=== PATIENT | male | born 1955 | race Caucasian/White ===

== ENCOUNTER 2016-05-08 13:58 | Emergency (ER) | payer OTHER ==
[~2016-05-08] VITALS: Ht 177.8 cm; Wt 72.0 kg
[~2016-05-08 13:58] MED LIST: ALPR-385 PO; CHOL2000 PO; CLON0.2T PO; CYAN10005 PO; DOCU-94 PO; MIRT15TA3 PO; NORT10CA PO; NRN/300 PO; ONDA8TAB12 PO
[2016-05-08 14:06] VITALS: TEMP 36.5; Ht 177.8 cm; Wt 72.0 kg
[2016-05-08] MEDS ORDERED: CLCS60 TOP (15:41)
[2016-05-08] MEDS ORDERED: PRT/40 PO (15:41)
[2016-05-08] MEDS ORDERED: TRIA0.022 TOP (15:41)
[2016-05-08] MEDS ORDERED: PROM25TA16 PO (15:41)
[2016-05-08] MEDS ORDERED: ZLF/50 PO (15:41)
[2016-05-08] MEDS ORDERED: TRIA1SPR4 NAE (15:42)
[2016-05-08] MEDS ORDERED: PROMETHAZINE HCL INJ 25 MG/ML 1 ML VIAL IV STA (15:49)
[2016-05-08] MEDS ORDERED: SODIUM CHLORIDE 0.9% 1000ML 1,000 ML IV STA (15:49)
[2016-05-08 16:00] LABS: BASO % 0.6 %; BASO ABS # 0.03 K/uL (0-0.2); COMPLETE YES; EOS % 2.3 %; HEMATOCRIT 45.9 % (42-52); IG% 0.2 %; LYMPH % 37.2 %; LYMPH ABS # 1.96 K/uL (1.2-3.4); MEAN CELL VOLUME 86.8 fL (80-100); MEAN CORPUSCULAR HEMOGLOBIN 30.8 pg (25-34); MEAN CORPUSCULAR HGB CONC 35.5 g/dl (32-36); MEAN PLATELET VOLUME 10.6 fL (7.4-10.4); MONO % 4.7 %; PLATELET COUNT 183 K/uL (130-400); RED BLOOD COUNT 5.29 M/uL (4.7-6.1); WHITE BLOOD COUNT 5.27 K/uL (4.8-10.8)
[2016-05-08 16:10] LABS: BLOOD UREA NITROGEN 9 mg/dl (7-18); BUN/CREATININE RATIO 8.5 (10-20); C-REACTIVE PROTEIN < 0.29 mg/dl (0-0.29); CALCIUM 8.7 mg/dl (8.5-10.1); CARBON DIOXIDE 26 mmol/L (21-32); CHLORIDE 108 mmol/L (98-107); GLUCOSE 106 mg/dl (70-99); POTASSIUM 3.5 mmol/L (3.5-5.1); SODIUM 141 mmol/L (136-145)
[2016-05-08] MEDS ORDERED: PROMETHAZINE HCL INJ 25 MG in SODIUM CHLORIDE 0.9% 50ML 50 ML IV SCH (16:15)
[2016-05-08 16:16] LABS: ALKALINE PHOSPHATASE 80 U/L (45-117); ALT/SGPT 24 U/L (12-78); AST/SGOT 16 U/L (15-37)
[2016-05-08 16:20] LABS: URINE APPEARANCE CLEAR (CLEAR); URINE BILIRUBIN NEG (NEG); URINE COLOR YELLOW; URINE NITRITE NEG (NEG); URINE PH 6.5 (4.5-7.5); URINE SPECIFIC GRAVITY 1.011 (1.000-1.030); UROBILINOGEN NEG (NEG)
[2016-05-08 16:28] LABS: MANUAL MICROSCOPIC REQUIRED? NO; REVIEW REQ? NO
[2016-05-08] MEDS ORDERED: OPTIRAY 320 IV PRN (17:30)
--- NOTE | 2016-05-08 18:58 | DIAGNOSTIC IMAGING REPORT ---
ABDOMEN AND PELVIS CT WITH IV AND ORAL CONTRAST CT DOSE: 298.85 mGy.cm HISTORY: Generalized abdominal pain. TECHNIQUE: Multiaxial CT images of the abdomen and pelvis were performed following the use of intravenous and oral contrast. COMPARISON STUDY: Abdomen and pelvis CT 06/01/2015. FINDINGS: Emphysema with mild bibasilar subsegmental atelectasis. Stable subcentimeter hypodense lesion within the liver and right kidney. The largest in the right kidney measures 9 mm. These are technically too small to characterize but likely represent cysts. The gallbladder, pancreas, spleen, adrenal glands, and left kidney are unremarkable. Normal bladder. Colonic diverticulosis. No bowel wall thickening or obstruction. Normal appendix. Moderate calcified plaque within the normal caliber abdominal aorta. No retroperitoneal lymphadenopathy. IMPRESSION: No significant change compared to the prior study. No bowel wall thickening or obstruction. Normal appendix. Colonic diverticulosis. Emphysema. Electronically signed by: Gurinder Lewis M.D. 05/08/2016 6:56 PM Dictated Date/Time: 05/08/2016 6:50 PM
--- NOTE | 2016-05-08 20:10 | DIAGNOSTIC IMAGING REPORT ---
ABDOMINAL ULTRASOUND, RIGHT UPPER QUADRANT HISTORY: postprandial nausea and vomiting with generalized abdominal pain. COMPARISON: Abdomen and pelvis CT 05/08/2016. Abdominal ultrasound 02/11/2015. FINDINGS: Pancreas: The pancreatic tail is obscured by overlying bowel gas. The remaining portions of the pancreas are within normal limits. Liver: The liver is echogenic consistent with fatty change. Gallbladder: No gallbladder wall thickening. No gallstones. CBD: 5 mm. Right kidney: No hydronephrosis. IMPRESSION: 1. Hepatic steatosis. 2. Normal gallbladder. Electronically signed by: Gurinder Lewis M.D. 05/08/2016 8:09 PM Dictated Date/Time: 05/08/2016 8:08 PM
[2016-05-08 20:45] VITALS: BP 132/80; PULSE 87; O2SAT 98
--- NOTE | 2016-05-08 21:13 | EMERGENCY ROOM VISIT NOTE ---
History First contact with patient: 15:28 Chief Complaint: NAUSEA Stated Complaint: NAUSEA, STOMACH PAIN, ANXIETY Nursing Triage Summary: pt here with nausea x one week. also having lower abd pains all week. pt states has hx of this. hx of anxiety History of Present Illness The patient is a 60 year old male who presents to the Emergency Room with complaints of nearly constant nausea and postprandial abdominal pain/cramping. The patient reports that the symptoms have been worsening over the past month. He is currently under the management of his PCP, Dr. Tamayo, who thinks that he has irritable bowel syndrome with constipation. The patient reports a long history of constipation. He has been taking Zofran in the past for the nausea. He is currently taking MiraLAX stool softeners. He did call his PCPs office on Saturday, and was prescribed Phenergan which also is not helping with his nausea. The patient reports that within a few minutes after eating any type of food, he has significant nausea, abdominal cramping and belching. He reports that his stools looked dark when he is significantly constipated. He is taking Colace with minimal relief. The patient reports having a colonoscopy performed by Dr. Enriquez in August 2015, showing multiple diverticuli and internal hemorrhoids. He is awaiting a gastric emptying study scheduled for 05/23/16. The patient reports that even walking and riding in a vehicle worsens his discomfort from the bumps. He denies any significant alleviating factors for his pain. The patient reports that his nausea and abdominal cramping seems to be worse at nighttime, to the point that when it is time for him to get up to go to work, he cannot go to work because of his symptoms. He has had to call off work multiple times for his symptoms. The patient currently rates his discomfort a 7 out of 10 with mild nausea. He denies any recent fevers or chills, urinary symptoms, cough, chest pain or shortness of breath. Review of Systems HEENT: Denies dizziness, visual problems, hearing loss, tinnitus. Denies difficulty swallowing or oral lesions. PULMONARY: Denies cough, shortness of breath, sputum production or hemoptysis. CARDIOVASCULAR: Denies chest pain, palpitations, dyspnea on exertion, orthopnea or peripheral edema. GASTROINTESTINAL: See history of present illness. GENITOURINARY: Denies dysuria, frequency, urgency or nocturia. NEUROLOGIC: Denies history of epilepsy, CVA, TIA or chronic headaches. MUSCULOSKELETAL: Denies history of joint tenderness/swelling. SKIN: Denies rashes or lesions. PSYCHIATRIC: Denies history of depression or mental illness. ENDOCRINE: Denies history of diabetes or thyroid disorders. 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 (3) Hypertension (4) Hypertension Nos (5) No significant past medical history (6) Tobacco Use Disorder Surgical Problems: (1) No history of previous surgery Social History Problems: (1) Weight loss Family History Hypertension Social History Smoking Status: Former Smoker Alcohol Use: none Drug Use: none Marital Status: Occupation Status: employed Current/Historical Medications Scheduled Alprazolam (Xanax), 1 MG PO TID Cholecalciferol (Vitamin D3), 1 CAP PO HS Clindamycin Phos (Clindamycin Phosphate), 1 APPLN TOP BID Clonidine Hcl (Catapres), 0.2 MG PO BID Cyanocobalamin (Vitamin B-12), 1,000 MCG PO Q2D Docusate Sodium (Colace), 100 MG PO BID Gabapentin (Neurontin), 300 MG PO TID Nortriptyline Hcl (Pamelor), 10 MG PO TID Pantoprazole (Pantoprazole Sodium), 40 MG PO DAILY Sertraline HCl (Sertraline HCl), 50 MG PO QAM Triamcinolone Acetonide (Nasal (Nasacort Allergy 24Hr), 2 SPRAYS BELÉN DAILY Triamcinolone Acetonide (Topic (Triamcinolone Acet 0.025%), 1 APPLN TOP BID Scheduled PRN Promethazine HCl (Promethazine HCl), 25 MG PO Q6 PRN for Nausea or Vomiting Allergies Coded Allergies: Sulfa Drugs (Verified Allergy, Mild, RASH, 05/08/16) Amoxicillin (Verified Allergy, Unknown, RASH, 05/08/16) Physical Exam Vital Signs Date Time Temp Pulse Resp B/P Pulse Ox O2 Delivery O2 Flow Rate FiO2 05/08/16 18:55 72 18 128/62 96 05/08/16 17:58 75 18 145/86 98 Room Air 05/08/16 16:19 67 18 148/96 98 Room Air 05/08/16 14:06 36.5 104 16 153/84 94 Room Air Physical Exam CONSTITUTIONAL: Healthy and well nourished. Alert and oriented X 3. PSYCHIATRIC: The patient appears mildly anxious and distraught regarding his symptoms. He does have a positive affect. HEENT: Normocephalic, atraumatic. Pupils equal, round and reactive. Ears and nares are clear. Mucous membranes are dry. No tonsillar hypertrophy or exudates. No scleral icterus or conjunctival injection/pallor. NECK: Full active range of motion without discomfort. LYMPHATICS: No adenopathy noted. RESPIRATORY: Clear to auscultation bilaterally with no wheezing, crackles, rhonchi or stridor. CARDIOVASCULAR: Regular rate and rhythm with no murmurs, rubs or gallops. GASTROINTESTINAL: Bowel sounds present in all quadrants. The patient has mild generalized tenderness to palpation of the abdomen. No obvious hepatosplenomegaly. Negative Blount sign. Negative McBurney's point tenderness. His discomfort does appear to be somewhat worsened in the left abdominal region. Negative CVA tenderness. MUSCULOSKELETAL: Full range of motion of all joints without discomfort. INTEGUMENTARY: No rash or other significant dermatologic conditions noted. HEMATOLOGIC: No ecchymosis or petechiae noted. NEUROLOGIC: No focal neurologic deficits noted. Medical Decision & Procedures ER Provider Diagnostic Interpretation: Enhanced CT of the abdomen and pelvis does not show any obstruction, free air or other acute intra-abdominal findings related radiologist report is as follows : ABDOMEN AND PELVIS CT WITH IV AND ORAL CONTRAST CT DOSE: 298.85 mGy.cm HISTORY: Generalized abdominal pain. TECHNIQUE: Multiaxial CT images of the abdomen and pelvis were performed following the use of intravenous and oral contrast. COMPARISON STUDY: Abdomen and pelvis CT 06/01/2015. FINDINGS: Emphysema with mild bibasilar subsegmental atelectasis. Stable subcentimeter hypodense lesion within the liver and right kidney. The largest in the right kidney measures 9 mm. These are technically too small to characterize but likely represent cysts. The gallbladder, pancreas, spleen, adrenal glands, and left kidney are unremarkable. Normal bladder. Colonic diverticulosis. No bowel wall thickening or obstruction. Normal appendix. Moderate calcified plaque within the normal caliber abdominal aorta. No retroperitoneal lymphadenopathy. IMPRESSION: No significant change compared to the prior study. No bowel wall thickening or obstruction. Normal appendix. Colonic diverticulosis. Emphysema. Gallbladder ultrasound was also normal without any evidence for gallstones, but or wall thickening or common bile duct dilatation. Radiologist report is as follows: ABDOMINAL ULTRASOUND, RIGHT UPPER QUADRANT HISTORY: postprandial nausea and vomiting with generalized abdominal pain. COMPARISON: Abdomen and pelvis CT 05/08/2016. Abdominal ultrasound 02/11/2015. FINDINGS: Pancreas: The pancreatic tail is obscured by overlying bowel gas. The remaining portions of the pancreas are within normal limits. Liver: The liver is echogenic consistent with fatty change. Gallbladder: No gallbladder wall thickening. No gallstones. CBD: 5 mm. Right kidney: No hydronephrosis. IMPRESSION: 1. Hepatic steatosis. 2. Normal gallbladder. Laboratory Results 05/08/16 15:45 Red Blood Count 5.29, Mean Corpuscular Volume 86.8, Mean Corpuscular Hemoglobin 30.8, Mean Corpuscular Hemoglobin Concent 35.5, Mean Platelet Volume 10.6, Neutrophils (%) (Auto) 55.0, Lymphocytes (%) (Auto) 37.2, Monocytes (%) (Auto) 4.7, Eosinophils (%) (Auto) 2.3, Basophils (%) (Auto) 0.6, Neutrophils # (Auto) 2.90, Lymphocytes # (Auto) 1.96, Monocytes # (Auto) 0.25, Eosinophils # (Auto) 0.12, Basophils # (Auto) 0.03 05/08/16 15:45 Test 05/08/16 15:45 05/08/16 15:48 White Blood Count 5.27 K/uL (4.8-10.8) Red Blood Count 5.29 M/uL (4.7-6.1) Hemoglobin 16.3 g/dL (14.0-18.0) Hematocrit 45.9 % (42-52) Mean Corpuscular Volume 86.8 fL (80-100) Mean Corpuscular Hemoglobin 30.8 pg (25-34) Mean Corpuscular Hemoglobin Concent 35.5 g/dl (32-36) Platelet Count 183 K/uL (130-400) Mean Platelet Volume 10.6 fL (7.4-10.4) Neutrophils (%) (Auto) 55.0 % Lymphocytes (%) (Auto) 37.2 % Monocytes (%) (Auto) 4.7 % Eosinophils (%) (Auto) 2.3 % Basophils (%) (Auto) 0.6 % Neutrophils # (Auto) 2.90 K/uL (1.4-6.5) Lymphocytes # (Auto) 1.96 K/uL (1.2-3.4) Monocytes # (Auto) 0.25 K/uL (0.11-0.59) Eosinophils # (Auto) 0.12 K/uL (0-0.5) Basophils # (Auto) 0.03 K/uL (0-0.2) RDW Standard Deviation 41.7 fL (36.4-46.3) RDW Coefficient of Variation 13.1 % (11.5-14.5) Immature Granulocyte % (Auto) 0.2 % Immature Granulocyte # (Auto) 0.01 K/uL (0.00-0.02) Erythrocyte Sedimentation Rate 10 mm/hr (0-14) Anion Gap 7.0 mmol/L (3-11) Est Creatinine Clear Calc Drug Dose 74.5 ml/min Estimated GFR () 85.3 Estimated GFR (Non- 73.6 BUN/Creatinine Ratio 8.5 (10-20) Calcium Level 8.7 mg/dl (8.5-10.1) Total Bilirubin 0.8 mg/dl (0.2-1) Direct Bilirubin 0.2 mg/dl (0-0.2) Aspartate Amino Transf (AST/SGOT) 16 U/L (15-37) Alanine Aminotransferase (ALT/SGPT) 24 U/L (12-78) Alkaline Phosphatase 80 U/L (45-117) C-Reactive Protein < 0.29 mg/dl (0-0.29) Total Protein 7.9 gm/dl (6.4-8.2) Albumin 4.1 gm/dl (3.4-5.0) Lipase 63 U/L (73-393) Urine Color YELLOW Urine Appearance CLEAR (CLEAR) Urine pH 6.5 (4.5-7.5) Urine Specific Ransom 1.011 (1.000-1.030) Urine Protein NEG (NEG) Urine Glucose (UA) NEG (NEG) Urine Ketones NEG (NEG) Urine Occult Blood NEG (NEG) Urine Nitrite NEG (NEG) Urine Bilirubin NEG (NEG) Urine Urobilinogen NEG (NEG) Urine Leukocyte Esterase NEG (NEG) The above labs were reviewed and were grossly unremarkable. Medications Administered Medications (Trade) Dose Ordered Sig/Zahra Route Start Time Stop Time Status Last Admin Dose Admin Sodium Chloride 1,000 ml @ 999 mls/hr Q1H1M STAT IV 05/08/16 15:49 05/08/16 16:49 DC 05/08/16 16:18 999 MLS/HR Promethazine HCl/ Sodium Chloride (Phenergan Inj/ Nss 50ml) 51 ml @ 204 mls/hr TODAY@1615 IV 05/08/16 16:15 05/08/16 16:29 DC 05/08/16 16:18 204 MLS/HR Procedure 1. IV hydration: The patient received a liter normal saline bolus 2. IV medications: The patient initially was administered Phenergan 25 mg IVP ED Course Patient history and physical exam were performed. Nurse's notes were reviewed. Vital signs were reviewed, showing mild tachycardia at 104 bpm. O2 saturation was 94% on room air. The patient is otherwise normotensive and afebrile. IV access was established, and labs were drawn. The patient was hydrated with a liter normal saline, and received IV Phenergan for nausea. He initially refused any IV analgesics. Review of labs does not show any significant findings. The patient tolerated his oral contrast, and did report some improvement of his nausea with the IV Phenergan. Enhanced CT of the abdomen and pelvis was unremarkable. Gallbladder ultrasound was also performed and was normal. The patient reported almost complete relief of his nausea, and denied any abdominal pain. The case was further discussed with Dr. Gooden, ED attending physician, who agrees with workup and plan of care. The patient was instructed to follow-up with Dr. Tamayo for further reevaluation. I do suspect that the patient will ultimately require a referral back to Dr. Enriquez. He was instructed to return to the emergency department for any progressively worsening symptoms or fever. The patient was happy with plan of care, and voiced understanding of all discharge instructions. Medical Decision Workup today is unremarkable as to the exact etiology of the patient's discomfort. The patient reports that his family doctor things that he has irritable bowel syndrome with constipation. His workup today is not suggestive of diverticulitis, bowel obstruction, appendicitis, cholecystitis, hepatitis, pancreatitis or urinary tract infection. I do not suspect cardiopulmonary referred pain. Impression Primary Impression: Nausea Additional Impression: Abdominal pain Departure Information Referrals Erik Tamayo, [facility] (PCP) Patient Instructions My [facility] Problem Qualifiers Additional Impression: Abdominal pain Abdominal location: generalized Qualified Codes: R10.84 - Generalized abdominal pain
== END 2016-05-08 20:45 | disposition home or self-care (01) ==
LOC: C.EDB 14:00 → C.EDC 20:45
DX: R11.0 Nausea (principal); R10.9 Unspecified abdominal pain; I10 Essential (primary) hypertension; Z87.891 Personal history of nicotine dependence; Z82.49 Family history of ischemic heart disease and other diseases of the circulatory system; K58.1 Irritable bowel syndrome with constipation

== ENCOUNTER → 2016-05-23 | Outpatient (CLI) | payer OTHER ==
[~2016-05-23] MED LIST changes: +CLCS60 TOP; +FLUT50SP45 NAE; +LINA1CAP PO; -MIRT15TA3 PO; -ONDA8TAB12 PO; +PANT40TA PO; +PANT40TA2 PO; +PROM25TA16 PO; +TRIA0.022 TOP; +TRIA1SPR4 NAE; +ZLF/50 PO
--- NOTE | 2016-05-23 13:58 | DIAGNOSTIC IMAGING REPORT ---
NUCLEAR GASTRIC EMPTYING STUDY: CLINICAL HISTORY: R11.0 [id number] Abdominal pain COMPARISON STUDY: TECHNIQUE: Following the oral administration of 1.1 mCi of technetium 99m sulfur colloid in egg sandwich and 8 ounces of water, static abdominal images are performed anteriorly and posteriorly at 0 minutes, 1 hour, 2 hours, and 4 hour time intervals. Gastric emptying was calculated utilizing the geometric mean method. FINDINGS: There is approximately 72 % gastric activity remaining at the 1 hour time interval, 51 % at the 2 hour time interval (normal is less than 60%), and 3 % remaining at the 4 hour time interval (normal is less than 10%). These findings are consistent with a normal study IMPRESSION: Findings are consistent with a normal study Electronically signed by: Mihai Dia M.D. 05/23/2016 1:56 PM Dictated Date/Time: 05/23/2016 1:56 PM
== END | disposition home or self-care (01) ==
LOC: C.NUCL 08:42
PROVIDERS: ATTEND Physician Assistant
DX: K59.00 Constipation, unspecified (principal); R11.0 Nausea; R10.9 Unspecified abdominal pain

== ENCOUNTER → 2016-06-27 | Outpatient (CLI) | payer OTHER ==
[2016-06-27 17:57] LABS: ALT/SGPT 27 U/L (12-78); AST/SGOT 15 U/L (15-37); BLOOD UREA NITROGEN 16 mg/dl (7-18); BUN/CREATININE RATIO 14.3 (10-20); CALCIUM 9.1 mg/dl (8.5-10.1); CARBON DIOXIDE 30 mmol/L (21-32); CHLORIDE 108 mmol/L (98-107); GLUCOSE 93 mg/dl (70-99); POTASSIUM 4.5 mmol/L (3.5-5.1); SODIUM 143 mmol/L (136-145)
[2016-06-27 18:00] LABS: ALB/GLOB RATIO 1.1 (0.9-2); ALKALINE PHOSPHATASE 90 U/L (45-117)
[2016-06-28 07:34] LABS: ESTIMATED AVERAGE GLUCOSE 120 mg/dl; HA1C FLAG Normal (Normal)
== END | disposition home or self-care (01) ==
LOC: C.LABBFT 10:51
PROVIDERS: ATTEND Family Medicine
DX: E53.8 Deficiency of other specified B group vitamins (principal); N40.0 Benign prostatic hyperplasia without lower urinary tract symptoms; R73.03 Prediabetes; I10 Essential (primary) hypertension; E55.9 Vitamin D deficiency, unspecified; Z11.59 Encounter for screening for other viral diseases

== ENCOUNTER → 2017-01-02 | Outpatient (CLI) | payer OTHER ==
[~2017-01-02] MED LIST changes: -FLUT50SP45 NAE; -PANT40TA PO
--- NOTE | 2017-01-02 08:57 | DIAGNOSTIC IMAGING REPORT ---
CT OF THE SINUSES WITHOUT CONTRAST FUSION PROTOCOL CLINICAL HISTORY: Sinonasal polyposis. COMPARISON STUDY: No previous studies for comparison. TECHNIQUE: Axial images of the sinuses were obtained without IV contrast according to Fusion protocol. Coronal reformats were viewed. FINDINGS: Visualized portions of the intracranial contents are unremarkable on this unenhanced exam. Mastoid air cells are clear. There is no fluid within the middle ears. Orbits are unremarkable. There are numerous polypoid lesions throughout the sinuses and nasal cavity suggestive of polyps. Bony remodeling of the turbinates is noted. The major drainage pathways are occluded by the polyps and mucosal thickening. Minimal nasal spurring is noted without significant nasal septal deviation. No air-fluid levels are present. Cribriform plate is intact. IMPRESSION: Numerous polyps throughout the sinuses and nasal cavity suggestive of sinonasal polyposis with associated occlusion of major drainage pathways. No CT evidence of acute sinusitis. Mild to moderate sinus opacification. Electronically signed by: Joe Zarco M.D. 01/02/2017 8:56 AM Dictated Date/Time: 01/02/2017 8:48 AM
== END | disposition home or self-care (01) ==
LOC: C.CTS 08:30
DX: J33.9 Nasal polyp, unspecified (principal)

== ENCOUNTER 2017-01-07 10:09 | Emergency (ER) | payer OTHER ==
[~2017-01-07] VITALS: Ht 177.8 cm; Wt 73.3 kg
[~2017-01-07 10:09] MED LIST changes: -FLUT50SP45 NAE; -LINA1CAP PO; -PANT40TA PO; -SINCALIDE INJ 1.5 MCG in SODIUM CHLORIDE 0.9% 100ML 100 ML IV ONE
[2017-01-07 10:19] VITALS: TEMP 36.4; Ht 177.8 cm; Wt 73.3 kg
[2017-01-07 10:48] VITALS: O2SAT 97
[2017-01-07] MEDS ORDERED: LINA1CAP PO (10:58)
[2017-01-07 11:43] LABS: BASO % 0.6 %; BASO ABS # 0.04 K/uL (0-0.2); COMPLETE YES; EOS % 1.8 %; HEMATOCRIT 44.5 % (42-52); IG% 0.2 %; LYMPH % 20.9 %; LYMPH ABS # 1.38 K/uL (1.2-3.4); MEAN CELL VOLUME 89.5 fL (80-100); MEAN CORPUSCULAR HEMOGLOBIN 30.8 pg (25-34); MEAN CORPUSCULAR HGB CONC 34.4 g/dl (32-36); MEAN PLATELET VOLUME 10.4 fL (7.4-10.4); MONO % 6.8 %; NEUT % 69.7 %; PLATELET COUNT 269 K/uL (130-400); RED BLOOD COUNT 4.97 M/uL (4.7-6.1)
[2017-01-07 11:45] LABS: INR 1.1 (0.9-1.1); PROTHROMBIN TIME (PATIENT) 11.5 SECONDS (9.0-12.0)
[2017-01-07 11:52] LABS: ALT/SGPT 25 U/L (12-78); BLOOD UREA NITROGEN 7 mg/dl (7-18); BUN/CREATININE RATIO 6.6 (10-20); CALCIUM 8.9 mg/dl (8.5-10.1); CARBON DIOXIDE 26 mmol/L (21-32); CHLORIDE 106 mmol/L (98-107); CREATININE 1.08 mg/dl (0.60-1.40); GLUCOSE 108 mg/dl (70-99); MAGNESIUM 2.1 mg/dl (1.8-2.4); POTASSIUM 3.6 mmol/L (3.5-5.1); SODIUM 140 mmol/L (136-145)
[2017-01-07 12:02] LABS: ALB/GLOB RATIO 0.8 (0.9-2); ALKALINE PHOSPHATASE 105 U/L (45-117); AST/SGOT 15 U/L (15-37); THYROID STIMULATING HORMONE 0.678 uIu/ml (0.300-4.500)
[2017-01-07 12:19] LABS: LYME DISEASE AB IGG NEG (NEG); LYME DISEASE AB IGM NEG (NEG)
[2017-01-07 12:48] LABS: URINE APPEARANCE CLEAR (CLEAR); URINE BILIRUBIN NEG (NEG); URINE COLOR ORANGE; URINE NITRITE NEG (NEG); URINE PH 5.5 (4.5-7.5); URINE SPECIFIC GRAVITY 1.011 (1.000-1.030); UROBILINOGEN NEG (NEG); ZZUR CULT IF INDIC CLEAN CATCH NO
[2017-01-07 12:51] LABS: MANUAL MICROSCOPIC REQUIRED? NO; REVIEW REQ? NO
--- NOTE | 2017-01-07 12:58 | DIAGNOSTIC IMAGING REPORT ---
CHEST ONE VIEW PORTABLE HISTORY: palpitations COMPARISON: Chest 06/01/2015. FINDINGS: Severe emphysema. No focal lung consolidations to suggest pneumonia. No evidence for pulmonary edema. No pleural effusions. No pneumothorax. The heart is normal in size. Interstitial thickening at the lung bases likely due to vascular crowding from the emphysema. IMPRESSION: Emphysema. Otherwise, no acute process within the chest. Electronically signed by: Gurinder Lewis M.D. 01/07/2017 12:56 PM Dictated Date/Time: 01/07/2017 12:53 PM
[2017-01-07 14:11] VITALS: BP 133/88; PULSE 80; O2SAT 98
[2017-01-07] MEDS ORDERED: ALBUTEROL HFA 8 GM INHALER INH ONE (14:15)
--- NOTE | 2017-01-07 14:56 | EMERGENCY ROOM VISIT NOTE ---
History Report prepared by Sharri: Rosy Castillo Under the Supervision of: Dr. Yolie Herrmann D.O. First contact with patient: 10:45 Chief Complaint: ABDOMINAL PAIN Stated Complaint: STOMACH, NAUSEA, SHALLOW BREATHING, WEAK, ANXIETY Nursing Triage Summary: pt reports he has ibs, feeling nauseated, has abd pain, no vomiting feelslike pain is pushing up in chest feels like heart skipping beat. has hx of high anxiety and depression, not able to take meds prior to testing for gallbladder History of Present Illness The patient is a 61 year old male who presents to the Emergency Room with complaints of palpitations that began 2 to 3 weeks ago. The patient states that his abdominal discomfort causes nausea, fatigue, and chest pain. He states that his abdominal pain leads to chest pain that feels like his heart is "skipping beats" and palpitations. The patient claims his symptoms worsen with eating food. He notes his abdomen is tender. He states he had a gallbladder test performed today prior to arrival. Pt states he has had these same symptoms intermittently for years and no one has been able to treat them. Has had prior testing including CT's. Denies change in diet or caffeine, denies use of etoh or drugs. No recent med changes. The patient notes he has breathing problems due to asthma, which worsens when experiencing abdominal pain. The patient denies the use of an inhaler. The patient admits to having a history of depression and anxiety. The patient states he previously had a colonoscopy done , noting normal results. The patient notes that he has been diagnosed with irritable bowel syndrome due to his constipation. Source of History: patient Onset: 2 to 3 weeks Position: abdomen Timing: other (persisent ) Modifying Factors (Worsening): eating Associated Symptoms: + chest pain (feels like "skipping" beats and palpitations), + nausea, + fatigue Review of Systems See HPI for pertinent positives & negatives. A total of 10 systems reviewed and were otherwise negative. 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 (3) Hypertension (4) Hypertension Nos (5) No significant past medical history (6) Tobacco Use Disorder Surgical Problems: (1) No history of previous surgery Social History Problems: (1) Weight loss Family History Hypertension Social History Smoking Status: Former Smoker Alcohol Use: none Drug Use: none Marital Status: Occupation Status: employed Current/Historical Medications Scheduled Alprazolam (Xanax), 1 MG PO TID Cholecalciferol (Vitamin D3), 1 CAP PO HS Clindamycin Phos (Clindamycin Phosphate), 1 APPLN TOP BID Clonidine Hcl (Catapres), 0.2 MG PO BID Cyanocobalamin (Vitamin B-12), 1,000 MCG PO Q2D Docusate Sodium (Colace), 100 MG PO BID Gabapentin (Neurontin), 300 MG PO TID Linaclotide (Linzess), 1 CAP PO DAILYBB Nortriptyline Hcl (Pamelor), 10 MG PO TID Pantoprazole (Protonix), 40 MG PO QAM Triamcinolone Acetonide (Topic (Triamcinolone Acet 0.025%), 1 APPLN TOP BID Scheduled PRN Fluticasone Propionate (Nasal) (Allergy Nasal [place] 24 Ho), 1 SPRAY BELÉN DAILY PRN for PRN Promethazine HCl (Promethazine HCl), 25 MG PO Q6 PRN for Nausea or Vomiting Allergies Coded Allergies: Sulfa Drugs (Verified Allergy, Mild, RASH, 01/09/17) Amoxicillin (Verified Allergy, Unknown, RASH, 01/09/17) Physical Exam Vital Signs Date Time Temp Pulse Resp B/P (MAP) Pulse Ox O2 Delivery O2 Flow Rate FiO2 01/07/17 14:11 80 18 133/88 98 Room Air 01/07/17 13:19 102 01/07/17 13:06 96 137/87 98 Room Air 01/07/17 12:21 99 18 127/79 97 Room Air 01/07/17 10:53 106 01/07/17 10:53 106 22 124/80 97 Room Air 01/07/17 10:48 97 Room Air 01/07/17 10:19 36.4 114 18 149/101 96 Room Air Physical Exam GENERAL: alert, anxious appearing, well nourished, no distress, non-toxic EYE EXAM: normal conjunctiva, PERRL and EOM's grossly intact OROPHARYNX: no exudate, no erythema, lips, buccal mucosa, and tongue normal and mucous membranes are moist NECK: supple, no nuchal rigidity, no adenopathy, non-tender LUNGS: Clear to auscultation. Normal chest wall mechanics HEART: no murmurs, S1 normal and S2 normal, no ectopy on tele ABDOMEN: abdomen soft, non-tender, normo-active bowel sounds, no masses, no rebound or guarding. BACK: Back is symmetrical on inspection and there is no deformity, no midline tenderness, no CVA tenderness. SKIN: no rashes and no bruising UPPER EXTREMITIES: upper extremities are grossly normal. Nml ROM and pulses. LOWER EXTREMITIES: No pitting edema. Nml ROM and pulses. NEURO EXAM: Normal sensorium, cranial nerves II-XII grossly intact, normal speech, no gross weakness of arms, no gross weakness of legs. Medical Decision & Procedures ER Provider Diagnostic Interpretation: Radiology results have been interpreted by the radiologist and reviewed by me. CHEST ONE VIEW PORTABLE HISTORY: palpitations COMPARISON: Chest 06/01/2015. FINDINGS: Severe emphysema. No focal lung consolidations to suggest pneumonia. No evidence for pulmonary edema. No pleural effusions. No pneumothorax. The heart is normal in size. Interstitial thickening at the lung bases likely due to vascular crowding from the emphysema. IMPRESSION: Emphysema. Otherwise, no acute process within the chest. Electronically signed by: Gurinder Lewis M.D. 01/07/2017 12:56 PM Laboratory Results 01/07/17 10:50 Red Blood Count 4.97, Mean Corpuscular Volume 89.5, Mean Corpuscular Hemoglobin 30.8, Mean Corpuscular Hemoglobin Concent 34.4, Mean Platelet Volume 10.4, Neutrophils (%) (Auto) 69.7, Lymphocytes (%) (Auto) 20.9, Monocytes (%) (Auto) 6.8, Eosinophils (%) (Auto) 1.8, Basophils (%) (Auto) 0.6, Neutrophils # (Auto) 4.60, Lymphocytes # (Auto) 1.38, Monocytes # (Auto) 0.45, Eosinophils # (Auto) 0.12, Basophils # (Auto) 0.04 01/07/17 10:50 Test 01/07/17 10:50 01/07/17 12:15 White Blood Count 6.60 K/uL (4.8-10.8) Red Blood Count 4.97 M/uL (4.7-6.1) Hemoglobin 15.3 g/dL (14.0-18.0) Hematocrit 44.5 % (42-52) Mean Corpuscular Volume 89.5 fL (80-100) Mean Corpuscular Hemoglobin 30.8 pg (25-34) Mean Corpuscular Hemoglobin Concent 34.4 g/dl (32-36) Platelet Count 269 K/uL (130-400) Mean Platelet Volume 10.4 fL (7.4-10.4) Neutrophils (%) (Auto) 69.7 % Lymphocytes (%) (Auto) 20.9 % Monocytes (%) (Auto) 6.8 % Eosinophils (%) (Auto) 1.8 % Basophils (%) (Auto) 0.6 % Neutrophils # (Auto) 4.60 K/uL (1.4-6.5) Lymphocytes # (Auto) 1.38 K/uL (1.2-3.4) Monocytes # (Auto) 0.45 K/uL (0.11-0.59) Eosinophils # (Auto) 0.12 K/uL (0-0.5) Basophils # (Auto) 0.04 K/uL (0-0.2) RDW Standard Deviation 42.8 fL (36.4-46.3) RDW Coefficient of Variation 13.1 % (11.5-14.5) Immature Granulocyte % (Auto) 0.2 % Immature Granulocyte # (Auto) 0.01 K/uL (0.00-0.02) Prothrombin Time 11.5 SECONDS (9.0-12.0) Prothromb Time International Ratio 1.1 (0.9-1.1) Anion Gap 8.0 mmol/L (3-11) Est Creatinine Clear Calc Drug Dose 76.0 ml/min Estimated GFR () 86.6 Estimated GFR (Non- 74.7 BUN/Creatinine Ratio 6.6 (10-20) Calcium Level 8.9 mg/dl (8.5-10.1) Magnesium Level 2.1 mg/dl (1.8-2.4) Total Bilirubin 0.5 mg/dl (0.2-1) Aspartate Amino Transf (AST/SGOT) 15 U/L (15-37) Alanine Aminotransferase (ALT/SGPT) 25 U/L (12-78) Alkaline Phosphatase 105 U/L (45-117) Troponin I < 0.015 ng/ml (0-0.045) Pro-B-Type Natriuretic Peptide 345 pg/ml (0-900) Total Protein 7.8 gm/dl (6.4-8.2) Albumin 3.4 gm/dl (3.4-5.0) Globulin 4.4 gm/dl (2.5-4.0) Albumin/Globulin Ratio 0.8 (0.9-2) Lipase 63 U/L (73-393) Thyroid Stimulating Hormone (TSH) 0.678 uIu/ml (0.300-4.500) Lyme Disease IgG Antibody NEG (NEG) Lyme Disease IgM Antibody NEG (NEG) Urine Color ORANGE Urine Appearance CLEAR (CLEAR) Urine pH 5.5 (4.5-7.5) Urine Specific [place] 1.011 (1.000-1.030) Urine Protein NEG (NEG) Urine Glucose (UA) NEG (NEG) Urine Ketones NEG (NEG) Urine Occult Blood NEG (NEG) Urine Nitrite NEG (NEG) Urine Bilirubin NEG (NEG) Urine Urobilinogen NEG (NEG) Urine Leukocyte Esterase NEG (NEG) Laboratory results per my review. Medications Administered Medications (Trade) Dose Ordered Sig/Zahra Route Start Time Stop Time Status Last Admin Dose Admin Albuterol (Ventolin Hfa Inhaler) 2 puffs NOW ONCE INH 01/07/17 14:15 01/07/17 14:16 DC 01/07/17 15:01 2 PUFFS ECG Indication: abdominal pain Rate (beats per minute): 101 Rhythm: sinus tachycardia Findings: PVC, no acute ischemic change, other (normal axis and intervals ) ED Course 1057: The patient was evaluated in room C6. A complete history and physical exam was performed. 1415: Ordered Ventolin 2 puffs INH. 1505: Upon reevaluation, the patient is feeling better. I discussed the findings and the treatment plan with the patient. He verbalizes agreement and understanding. The patient was discharged home. Medical Decision Differential diagnosis: Etiologies such as premature contractions, electrolyte abnormality, cardiac dysrhythmia, thyroid dysfunction, pulmonary embolism, infection, gastrointestinal, as well as others were entertained. Pt with several ongoing complaints, being evaluated as an outpt, states here today due to palpitations. No recent sx to suggest acute infectious etiology. Results of outpt HIDA noted in EMR this am and were normal. Pt has seen GI and had prior colo to evaluate his abd pain. Pt states pain triggered palpitations. No hx of cardiac problems. Occasional PAC noted on telemetry, possibly contributing to sx however i feel pt's anxiety more likely contributing also. Discussed with him continued outpt follow-up, sx to watch/ return for, possible need for additional cardiology evaluation, he verbalized understanding and was agreeable with plan. Doubt occult infectious etiology. Did not feel given recent evaluation and chronicity of sx that pt warranted additional abdominal imaging at this time. Doubt acs, pe, perf, gi bleed, abdominal compartment syndrome, drug use, tamponade, effusion. Impression Primary Impression: Palpitations Additional Impression: Anxiety Scribe Attestation The scribe's documentation has been prepared under my direction and personally reviewed by me in its entirety. I confirm that the note above accurately reflects all work, treatment, procedures, and medical decision making performed by me. Departure Information Dispostion Home / Self-Care Referrals Sofia Wilcox ., WILBERTO (PCP) Patient Instructions My [facility] Additional Instructions Please continue your outpatient evaluation of your ongoing stomach and intestinal problems. Please discuss with your family doctor follow-up with cardiology given your persistent palpitations. If you have any worsening pain, develop chest pain, trouble breathing, dizziness, vomiting, diarrhea, or you have any other new or concerning symptoms, please return to the emergency room. Please continue your regular medicines as prescribed. Please monitor your diet carefully and avoid any foods which you have learned can exacerbate your IBS. Problem Qualifiers
[2017-01-09] MEDS ORDERED: FLUT50SP45 NAE (11:58)
[2017-01-09] MEDS ORDERED: PANT40TA PO (11:58)
== END 2017-01-07 15:06 | disposition home or self-care (01) ==
LOC: C.EDB 10:12 → C.EDC 15:06
DX: R00.2 Palpitations (principal); F41.9 Anxiety disorder, unspecified; K58.9 Irritable bowel syndrome, unspecified; K57.30 Diverticulosis of large intestine without perforation or abscess without bleeding; I10 Essential (primary) hypertension; Z82.49 Family history of ischemic heart disease and other diseases of the circulatory system; Z87.891 Personal history of nicotine dependence

== ENCOUNTER → 2017-01-07 | Outpatient (CLI) | payer OTHER ==
[~2017-01-07] MED LIST changes: +FLUT50SP45 NAE; +PANT40TA PO; +SINCALIDE INJ 1.5 MCG in SODIUM CHLORIDE 0.9% 100ML 100 ML IV ONE
--- NOTE | 2017-01-07 10:17 | DIAGNOSTIC IMAGING REPORT ---
NUCLEAR MEDICINE HEPATOBILIARY SCAN WITH EJECTION FRACTION HISTORY: R10.13 Abdominal discomfort, epigastric [id number] COMPARISON: None. TECHNIQUE: Immediately following the intravenous administration of 5.6 mCi Tc-99m Choletec, dynamic anterior abdominal imaging pre/post 1.5 mcg of Kinevac was performed. FINDINGS: Uniform hepatic tracer accumulation is shown. Prompt intrahepatic biliary excretion is seen. The gallbladder, common bile duct are all visualized by 20 minutes. Delayed visualization of small bowel at 70 minutes.. The gall bladder ejection fraction following administration of Kinevac was 93% (normal >35%). IMPRESSION: 1. No evidence for cystic duct obstruction. 2. Gallbladder ejection fraction calculated to be 93 %. 3. Slight delayed visualization of small bowel which could be seen in the setting of biliary dyskinesia or a normal variant. Electronically signed by: Gurinder Lewis M.D. 01/07/2017 10:16 AM Dictated Date/Time: 01/07/2017 10:15 AM
== END | disposition home or self-care (01) ==
LOC: C.NUCL 07:39
PROVIDERS: ATTEND Physician Assistant
DX: R10.13 Epigastric pain (principal); R93.2 Abnormal findings on diagnostic imaging of liver and biliary tract

== ENCOUNTER → 2017-01-14 | Day surgery (SDC) | payer OTHER ==
[2017-01-09 11:58] VITALS: Ht 177.8 cm; Wt 73.2 kg
[~2017-01-14] VITALS: Ht 177.8 cm; Wt 73.2 kg
[~2017-01-14] MED LIST changes: +FENTANYL CITRATE INJ 50 MCG/1 ML 2 ML VIAL ONE; +FLUT50SP45 NAE; +LIDOCAINE HCL 2% 2 ML VIAL (20MG/ML) ONE; +LINA1CAP PO; +PANT40TA PO; -PANT40TA2 PO; +PROPOFOL IV EMULSION 10 MG/ML 20 ML VIAL IV ONE; -TRIA1SPR4 NAE; -ZLF/50 PO
--- NOTE | 2017-01-14 14:08 | Endo History and Physical ---
History & Physical Date of Service: Jan 14, 2017. Chief Complaint: Abdominal pain Referring Physician: Esmer Bustillos History of Present Illness 61 yo CM who presents for EGD secondary to abdominal pain. Past Medical History Arthritis, Anxiety, Reflux, Hypertension, Depression Past Surgical History Hx Cardiac Surgery: No Hx Internal Defibrillator: No Hx Pacemaker: No Hx Abdominal Surgery: No Hx of Implantable Prosthesis: No Hx Post-Op Nausea and Vomiting: No Hx Cancer Surgery: No Hx Thoracic Surgery: No Hx Orthopedic: No Hx Urinary Tract Surgery: No Family History None Social History Smoking Status: Former Smoker Hx Substance Use: No Hx Alcohol Use: No Allergies Coded Allergies: Sulfa Drugs (Verified Allergy, Mild, RASH, 01/09/17) Amoxicillin (Verified Allergy, Unknown, RASH, 01/09/17) Current Medications Reported Home Medications Medications Dose Route/Sig Max Daily Dose Days Date Category Dose Instructions Allergy Nasal [place] 24 Ho (Fluticasone Propionate (Nasal)) 50 Mcg/Act Spr 1 [place] BELÉN DAILY PRN 01/09/17 Reported Protonix (Pantoprazole Sodium) 40 Mg Tab 40 Mg PO QAM 01/09/17 Reported Linzess (Linaclotide) 145 Mcg Cap 1 Cap PO DAILYBB 01/07/17 Reported Triamcinolone Acet 0.025% (Triamcinolone Acetonide (Topic) 0.025 % Lot 1 Appln TOP BID 05/08/16 Reported CREAM Clindamycin Phosphate (Clindamycin Phos) 60 Appln/60 Ml Soln 1 Appln TOP BID 05/08/16 Reported Promethazine HCl 25 Mg Tab 25 Mg PO Q6 PRN 05/08/16 Reported Neurontin (Gabapentin) 300 Mg Cap 300 Mg PO TID 08/25/15 Reported Vitamin D3 (Cholecalciferol) 2,000 Unit Cap 1 Cap PO HS 90 08/25/15 Reported Colace (Docusate Sodium) 100 Mg Cap 100 Mg PO BID 30 06/01/15 Reported Vitamin B-12 (Cyanocobalamin) 1,000 Mcg Tab 1,000 Mcg PO Q2D 06/01/15 Reported Catapres (Clonidine Hcl) 0.2 Mg Tab 0.2 Mg PO BID 02/11/15 Reported Pamelor (Nortriptyline Hcl) 10 Mg Cap 10 Mg PO TID 10/17/14 Reported Xanax (Alprazolam) 1 Mg Tab 1 Mg PO TID 10/17/14 Reported Vital Signs Weight (Kilograms): 73.18 Height (Feet): 5 Height (Inches): 10 Date Time Temp Pulse Resp B/P (MAP) Pulse Ox O2 Delivery O2 Flow Rate FiO2 01/14/17 13:58 36.9 101 18 155/90 (111) 96 Room Air Physical Exam General Appearance: WD/WN, no apparent distress Respiratory/Chest: Auscultation: breath sounds normal Cardiovascular: Heart Auscultation: RRR Abdomen: Bowel Sounds: normal Inspection & Palpation: soft, non-distended, no tenderness, guarding & rebound Assessment and Plan Assessment: 61 yo CM who presents for EGD secondary to abdominal pain. Plan: Proceed with EGD.
--- NOTE | 2017-01-14 14:50 | Discharge Instructions ---
Endoscopy Patient Instructions Date / Procedure(s) Performed Jan 14, 2017. EGD Allergy Information Coded Allergies: Sulfa Drugs (Verified Allergy, Mild, RASH, 01/09/17) Amoxicillin (Verified Allergy, Unknown, RASH, 01/09/17) Discharge Date / Findings Jan 14, 2017. Gastritis s/p biopsies Medication Instructions OK to resume all medications today as prescribed Medications Dose Route/Sig Max Daily Dose Days Date Category Dose Instructions Allergy Nasal [place] 24 Ho (Fluticasone Propionate (Nasal)) 50 Mcg/Act Spr 1 [place] BELÉN DAILY PRN 01/09/17 Reported Protonix (Pantoprazole Sodium) 40 Mg Tab 40 Mg PO QAM 01/09/17 Reported Linzess (Linaclotide) 145 Mcg Cap 1 Cap PO DAILYBB 01/07/17 Reported Triamcinolone Acet 0.025% (Triamcinolone Acetonide (Topic) 0.025 % Lot 1 Appln TOP BID 05/08/16 Reported CREAM Clindamycin Phosphate (Clindamycin Phos) 60 Appln/60 Ml Soln 1 Appln TOP BID 05/08/16 Reported Promethazine HCl 25 Mg Tab 25 Mg PO Q6 PRN 05/08/16 Reported Neurontin (Gabapentin) 300 Mg Cap 300 Mg PO TID 08/25/15 Reported Vitamin D3 (Cholecalciferol) 2,000 Unit Cap 1 Cap PO HS 90 08/25/15 Reported Colace (Docusate Sodium) 100 Mg Cap 100 Mg PO BID 30 06/01/15 Reported Vitamin B-12 (Cyanocobalamin) 1,000 Mcg Tab 1,000 Mcg PO Q2D 06/01/15 Reported Catapres (Clonidine Hcl) 0.2 Mg Tab 0.2 Mg PO BID 02/11/15 Reported Pamelor (Nortriptyline Hcl) 10 Mg Cap 10 Mg PO TID 10/17/14 Reported Xanax (Alprazolam) 1 Mg Tab 1 Mg PO TID 10/17/14 Reported Provider Instructions Activity Restrictions - No exercising or heavy lifting for 24 hours. - Do not drink alcohol the day of the procedure. - Do not drive a car or operate machinery until the day after the procedure. - Do not make any important decisions or sign important papers in 24 hours after the procedure. Following Day: - Return to full activity which may include returning to work/school. Diet Start your diet with liquids and light foods (jello soup, juice, toast). Then eat your usual diet if not nauseated. Treatment For Common After Affects For mild abdominal pain, bloating, or excessive gas: - Rest - Eat lightly - Lie on right side Follow-Up Information Follow-up with [facility] as scheduled Anesthesia Information What You Should Know You have had a procedure that required some medicine to reduce anxiety and discomfort. This treatment is called moderate sedation. After receiving the treatment, you may be sleepy, but you will be able to breathe on your own. The effects of the treatment may last for several hours. Follow these instructions along with Activity/Diet recommendations noted above: * Do NOT do anything where dizziness or clumsiness would be dangerous. * Rest quietly at home today, then you can be up and about tomorrow. * Have a responsible person stay with you the rest of today. * You may have had an I.V. today. If so, you may take the dressing off later today. Recommendations Call your doctor if: * Trouble breathing * Continuous vomiting for more than 24 hours * Temperature above 101 degrees * Severe abdominal pain or bloating * Pain not relieved by pain medicine ordered * There is increased drainage or redness from any incision * A large amount of rectal bleeding greater than 2-3 tablespoons. (If you had a polyp/s removed or have hemorrhoids, a small amount of blood - from the rectum is to be expected.) * You have any unanswered questions or concerns. IN THE EVENT OF A SERIOUS EMERGENCY, GO TO THE NEAREST EMERGENCY ROOM Your discharge instructions were prepared by provider Marbin Enriquez. Patient Instructions Signature Page Joshua Gonzales Patient (or Guardian) Signature/Date: I have read and understand the instructions given to me by my caregivers. Caregiver/RN/Doctor Signature/Date: The above-named patient and/or guardian has received patient instructions on this date. + Original Patient Signature Page (only) stays with chart. Please make copy for patient.
--- NOTE | 2017-01-14 14:57 | GI REPORT ---
Procedure Date: 01/14/2017 2:18 PM Procedure: Upper GI endoscopy Indications: Epigastric abdominal pain Medicines: Monitored Anesthesia Care Complications: No immediate complications. Estimated Blood Loss: Estimated blood loss: none. Procedure: Pre-Anesthesia Assessment: - Prior to the procedure, a History and Physical was performed, and patient medications and allergies were reviewed. The patient's tolerance of previous anesthesia was also reviewed. The risks and benefits of the procedure and the sedation options and risks were discussed with the patient. All questions were answered, and informed consent was obtained. Prior Anticoagulants: The patient has taken no previous anticoagulant or antiplatelet agents. ASA Grade Assessment: II - A patient with mild systemic disease. After reviewing the risks and benefits, the patient was deemed in satisfactory condition to undergo the procedure. After obtaining informed consent, the endoscope was passed under direct vision. Throughout the procedure, the patient's blood pressure, pulse, and oxygen saturations were monitored continuously. The scope was introduced through the mouth, and advanced to the second part of duodenum. The upper GI endoscopy was accomplished without difficulty. The patient tolerated the procedure well. Findings: The examined esophagus was normal. Localized mild inflammation characterized by erythema was found in the gastric antrum. Biopsies were taken with a cold forceps for histology. The examined duodenum was normal. Impression: - Normal esophagus. - Gastritis. Biopsied. - Normal examined duodenum. Recommendation: - Resume previous diet. - Continue present medications. - Await pathology results. - Return to primary care physician as previously scheduled. Marbin Enriquez, DO 01/14/2017 2:56:35 PM This report has been signed electronically. Note Initiated On: 01/14/2017 2:18 PM I attest to the content of the Intraoperative Record and orders documented therein, exceptions below
--- NOTE | 2017-01-14 15:08 | Anesthesiology Progress Note ---
Anesthesia Post Op Note Date & Time Jan 14, 2017 at 15:08 Vital Signs Pain Intensity: 0 Vital Signs Past 12 Hours Date Time Temp Pulse Resp B/P (MAP) Pulse Ox O2 Delivery O2 Flow Rate FiO2 01/14/17 15:02 90 16 137/87 (104) 97 Room Air 01/14/17 14:47 92 16 121/83 (96) 95 Room Air 01/14/17 13:58 36.9 101 18 155/90 (111) 96 Room Air Notes Mental Status: alert / awake / arousable, participated in evaluation Pt Amnestic to Procedure: Yes Nausea / Vomiting: adequately controlled Pain: adequately controlled Airway Patency, RR, SpO2: stable & adequate BP & HR: stable & adequate Hydration State: stable & adequate Anesthetic Complications: no major complications apparent
[2017-01-14 15:18] VITALS: BP 146/90; PULSE 89; O2SAT 96
== END | disposition home or self-care (01) ==
LOC: C.GI 13:31
PROVIDERS: ATTEND Internal Medicine
DX: K29.70 Gastritis, unspecified, without bleeding (principal); I10 Essential (primary) hypertension; K21.9 Gastro-esophageal reflux disease without esophagitis; F41.9 Anxiety disorder, unspecified; F32.9 Major depressive disorder, single episode, unspecified; M19.90 Unspecified osteoarthritis, unspecified site; Z87.891 Personal history of nicotine dependence; Z79.899 Other long term (current) drug therapy

== ENCOUNTER → 2017-01-16 | Outpatient (CLI) | payer OTHER ==
[~2017-01-16] MED LIST changes: -FENTANYL CITRATE INJ 50 MCG/1 ML 2 ML VIAL ONE; -LIDOCAINE HCL 2% 2 ML VIAL (20MG/ML) ONE; -PROPOFOL IV EMULSION 10 MG/ML 20 ML VIAL IV ONE
[2017-01-16 17:45] LABS: LYME DISEASE AB IGG NEG (NEG); LYME DISEASE AB IGM NEG (NEG)
== END | disposition home or self-care (01) ==
LOC: C.LABBC 14:44
PROVIDERS: ATTEND Physician Assistant
DX: I49.1 Atrial premature depolarization (principal)

== ENCOUNTER → 2017-03-29 | Day surgery (SDC) | payer OTHER ==
[2017-02-26 14:57] VITALS: Ht 177.8 cm; Wt 73.6 kg
--- NOTE | 2017-03-11 15:32 | PAT Medication Instructions ---
Service Date Mar 11, 2017. Current Home Medication List Alprazolam (Xanax), 1 MG PO TID Cholecalciferol (Vitamin D3), 1 CAP PO HS Clindamycin Phos (Clindamycin Phosphate), 1 APPLN TOP BID Cyanocobalamin (Vitamin B-12), 1,000 MCG PO Q2D Docusate Sodium (Colace), 100 MG PO BID Fluticasone Propionate (Nasal) (Allergy Nasal [place] 24 Ho), 1 SPRAY BELÉN DAILY PRN for PRN Gabapentin (Neurontin), 300 MG PO TID Linaclotide (Linzess), 1 CAP PO QAM PRN for PRN Metoprolol Succ (Toprol Xl) (Toprol-Xl), 25 MG PO QAM Nortriptyline Hcl (Pamelor), 10 MG PO TID Pantoprazole (Protonix), 40 MG PO QAM Promethazine HCl (Promethazine HCl), 25 MG PO Q6 PRN for Nausea or Vomiting Tiotropium [place] (Spiriva Handihaler), 1 CAP INH DAILY PRN for Shortness of Breath Triamcinolone Acetonide (Topic (Triamcinolone Acet 0.025%), 1 APPLN TOP BID Medication Instructions For Your Scheduled Surgery - Hold the following medications 24 hours prior to surgery: Triamcinolone Acetonide (Topic (Triamcinolone Acet 0.025%), 1 APPLN TOP BID Clindamycin Phos (Clindamycin Phosphate), 1 APPLN TOP BID - Hold the following medications the morning of surgery: Linaclotide (Linzess), 1 CAP PO QAM PRN for PRN Docusate Sodium (Colace), 100 MG PO BID - Take the following medications the morning of surgery with a sip of water: Tiotropium [place] (Spiriva Handihaler), 1 CAP INH DAILY PRN for Shortness of Breath (if needed) Pantoprazole (Protonix), 40 MG PO QAM Promethazine HCl (Promethazine HCl), 25 MG PO Q6 PRN for Nausea or Vomiting (if needed) Nortriptyline Hcl (Pamelor), 10 MG PO TID Metoprolol Succ (Toprol Xl) (Toprol-Xl), 25 MG PO QAM Gabapentin (Neurontin), 300 MG PO TID Fluticasone Propionate (Nasal) (Allergy Nasal [place] 24 Ho), 1 SPRAY BELÉN DAILY PRN for PRN (if needed) Alprazolam (Xanax), 1 MG PO TID - Take the following medications as scheduled the night before surgery: Tiotropium [place] (Spiriva Handihaler), 1 CAP INH DAILY PRN for Shortness of Breath (if needed) Promethazine HCl (Promethazine HCl), 25 MG PO Q6 PRN for Nausea or Vomiting (if needed) Nortriptyline Hcl (Pamelor), 10 MG PO TID Cholecalciferol (Vitamin D3), 1 CAP PO HS Linaclotide (Linzess), 1 CAP PO QAM PRN for PRN (if needed) Gabapentin (Neurontin), 300 MG PO TID Docusate Sodium (Colace), 100 MG PO BID Cyanocobalamin (Vitamin B-12), 1,000 MCG PO Q2D Fluticasone Propionate (Nasal) (Allergy Nasal [place] 24 Ho), 1 SPRAY BELÉN DAILY PRN for PRN (if needed) Alprazolam (Xanax), 1 MG PO TID If you have any questions please call us at [phone] or [phone] or [phone]
[2017-03-11 16:19] LABS: CALCIUM 8.7 mg/dl (8.5-10.1); CREATININE 1.01 mg/dl (0.60-1.40); POTASSIUM 4.1 mmol/L (3.5-5.1)
[2017-03-11 16:22] LABS: PTT PATIENT 27.3 SECONDS (21.0-31.0)
[2017-03-11 16:43] LABS: HEMATOCRIT 47.6 % (42-52); HEMOGLOBIN 16.3 g/dL (14.0-18.0); MEAN CELL VOLUME 90.5 fL (80-100); MEAN CORPUSCULAR HGB CONC 34.2 g/dl (32-36); MEAN PLATELET VOLUME 10.8 fL (7.4-10.4); PLATELET COUNT 168 K/uL (130-400); RED CELL DISTRIBUTION WIDTH SD 45.9 fL (36.4-46.3); WHITE BLOOD COUNT 6.04 K/uL (4.8-10.8)
[~2017-03-29] VITALS: Ht 177.8 cm; Wt 73.6 kg
[~2017-03-29] MED LIST changes: +ALBUT/IPRATROP 3MG/0.5MG NEB 3 ML VIAL ONE; +ATROPINE SULFATE 0.1 MG/ML 5ML SYR IV PRN; +CHECK SCOPOLAMINE PATCH PLACEMENT SCH; +CLINDAMYCIN PHOS 150 MG/ML 2 ML VIAL IV SCH; -CLON0.2T PO; +DEXAMETHASONE SOD INJ 4 MG/ML VIAL ONE; +EpHEDrine SULFATE INJ 50 MG/ML AMP IV PRN; +EpHEDrine SULFATE INJ 50 MG/ML AMP ONE; +EpINEphrine INJ 1MG/ML AMP 1 MG/ML AMP ONE; +FENTANYL CITRATE INJ 50 MCG/1 ML 2 ML VIAL IV PRN; +FENTANYL CITRATE INJ 50 MCG/1 ML 2 ML VIAL ONE; +GLYCOPYRROLATE INJ 0.2 MG/ML VIAL ONE; +HYDROCODONE/ACETAMIN 5/325MG TAB PO PRN; +LACTATED RINGER'S 1000ML 1,000 ML IV SCH; +LIDOCAINE 4% MPF SOAK 5 ML = 1 DOSE TOP ONE; +LIDOCAINE HCL 2% 2 ML VIAL (20MG/ML) ONE; +LIDOCAINE/EPINEPHRINE 1% 20 ML VIAL ONE; +METO25TA3 PO; +NEOSTIGMINE METHYLSULFATE 5 MG/5 ML SYR ONE; +ONDANSETRON INJ 2 MG/ML 2 ML VIAL IV PRN; +ONDANSETRON INJ 2 MG/ML 2 ML VIAL ONE; +OXYMETAZOLINE HCL 0.05% NA SPR 15 ML BTL NAE SCH; +OXYMETAZOLINE HCL 0.05% NA SPR 15 ML BTL PRN; +PHENYLEPHRINE HCL INJ 10 MG/ML VIAL ONE; +PROPOFOL IV EMULSION 10 MG/ML 20 ML VIAL IV ONE; +SCOPOLAMINE 1.5 MG TDSY TD ONE; +SPRIN/30 INH; +TRIAMCINOLONE ACET 40 MG/ML VIAL ONE
--- NOTE | 2017-03-29 06:43 | History and Physical: Surg Cnt ---
History & Physical Date Mar 29, 2017. Chief Complaint CHRONIC SINUSITIS History of Present Illness The patient is a 61 year old male with complaints of CHRONIC SINUSITIS/NASAL POLYPOSIS WITH SYMPTOMS DESPITE MAXIMAL MEDICAL RX. 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 (3) Hypertension (4) Hypertension Nos (5) No significant past medical history (6) Tobacco Use Disorder ALSO GERD, ALLERGIC RHINITIS, ASTHMA, BPH, DEPRESSION, ANXIETY, IBS, COPD, VIT B 12 AND D DEFICIENCY Surgical Problems: (1) No history of previous surgery Social History Problems: (1) Weight loss Allergies Coded Allergies: Sulfa Drugs (Verified Allergy, Mild, RASH, 03/29/17) Amoxicillin (Verified Allergy, Unknown, RASH, 03/29/17) Home Medications Scheduled Alprazolam (Xanax), 1 MG PO TID Cholecalciferol (Vitamin D3), 1 CAP PO HS Clindamycin Phos (Clindamycin Phosphate), 1 APPLN TOP BID Cyanocobalamin (Vitamin B-12), 1,000 MCG PO Q2D Docusate Sodium (Colace), 100 MG PO BID Gabapentin (Neurontin), 300 MG PO TID Metoprolol Succ (Toprol Xl) (Toprol-Xl), 25 MG PO QAM Nortriptyline Hcl (Pamelor), 10 MG PO TID Pantoprazole (Protonix), 40 MG PO QAM Triamcinolone Acetonide (Topic (Triamcinolone Acet 0.025%), 1 APPLN TOP BID Scheduled PRN Fluticasone Propionate (Nasal) (Allergy Nasal [place] [address] Ho), 1 SPRAY BELÉN DAILY PRN for PRN Linaclotide (Linzess), 1 CAP PO QAM PRN for PRN Promethazine HCl (Promethazine HCl), 25 MG PO Q6 PRN for Nausea or Vomiting Tiotropium [place] (Spiriva Handihaler), 1 CAP INH DAILY PRN for Shortness of Breath Physical Examination Skin: warm/dry, no rash Eyes: normal inspection, EOMI, sclerae normal ENT: + pertinent finding (L>R NASAL POLYPOSIS; B ITH) Head: normocephalic, atraumatic Neck: supple, no adenopathy, trachea midline Respiratory/Chest: lungs clear, normal breath sounds, no respiratory distress Cardiovascular: regular rate, rhythm, no edema, no murmur Neurologic/Psych: no motor/sensory deficits, alert, normal reflexes, oriented x 3 Diagnosis CHRONIC POLYPOID RHINOSINUSITIS, BILATERAL INFERIOR TURBINATE HYPERTROPHY Plan of Treatment IMAGE GUIDED B FESS/INFERIOR TURBINATE REDUCTION
--- NOTE | 2017-03-29 08:01 | [facility] Operative Report ---
Operative Report Operative Date Mar 29, 2017. Pre-Operative Diagnosis Chronic Sinusitis, Bilateral Inferior Turbinate Hypertrophy Post-Operative Diagnosis Same Procedure(s) Performed Image Guided Bilateral Endoscopic Sinus Surgery, Bilateral Inferior Turbinate Reduction Surgeon Dr. Carreon English As A Second Language Instructor Surgeon(s) None Estimated Blood Loss 10 mL Findings 1. SEVERE L>R SINONASAL POLYPOSIS 2. POLYP WITHIN L MAXILLARY AND SPHENOID SINUSES 3. B ITH Specimens A. Left Nasal Polyp B. Left Maxillary Sinus Contents C. Left Sphenoid Sinus Contents D. Right Nasal Polyp Anesthesia Type General I attest to the content of the Intraoperative Record and any orders documented therein. Any exceptions are noted below.
--- NOTE | 2017-03-29 08:04 | Discharge Instructions ---
Discharge Instructions Date of Service Mar 29, 2017. Admission Reason for Admission: Nasal Polyp, Chronic Sinusitis, Hypertrophy Turbin Discharge Discharge Diagnosis / Problem: SAME Discharge Goals Goal(s): Therapeutic intervention Activity Recommendations Activity Limitations: as noted below LIGHT ACTIVITY AND NO NOSE BLOWING FOR 2 WEEKS; NO DRIVING WHILE ON NORCO . Current Hospital Diet Patient's current hospital diet: Discharge Diet Recommended Diet: Regular Diet Procedures Procedures Performed: Image Guided Bilateral Endoscopic Sinus Surgery, Bilateral Inferior Turbinate Reduction Pending Studies Studies pending at discharge: no Medical Emergencies . Who to Call and When: Medical Emergencies: If at any time you feel your situation is an emergency, please call 911 immediately. . Non-Emergent Contact Non-Emergency issues call your: Surgeon . . "Provider Documentation" section prepared by Abelardo Carreon. . VTE Core Measure Inpt VTE Proph given/why not?: SCD's
--- NOTE | 2017-03-29 08:44 | OPERATIVE REPORT ---
DATE OF OPERATION: 03/29/2017 PREOPERATIVE DIAGNOSES: 1. Chronic polypoid rhinosinusitis. 2. Bilateral inferior turbinate hypertrophy. POSTOPERATIVE DIAGNOSES: Same. PROCEDURES: Medtronic fusion image guided bilateral endoscopic sinus surgery consisting of: 1. Left maxillary antrostomy with tissue removal. 2. Left complete ethmoidectomy. 3. Left balloon sinuplasty assisted frontal sinusotomy. 4. Left sphenoidotomy with tissue removal. 5. Right maxillary antrostomy. 6. Right complete ethmoidectomy. 7. Right frontal sinusotomy. 8. Right sphenoidotomy. 9. Bilateral inferior turbinate outfracture and turbinoplasty. SURGEON: Abelardo Carreon MD. ANESTHESIA: General endotracheal. ESTIMATED BLOOD LOSS: 10 mL. FINDINGS: 1. Severe left greater than right sinonasal polyposis with also a polyp within the left maxillary and left sphenoid sinuses. 2. Bilateral inferior turbinate hypertrophy. SPECIMENS: 1. Left and right nasal polyp for permanent pathological assessment. 2. Left maxillary sinus contents for permanent pathological assessment. 3. Left sphenoid sinus contents for permanent pathological assessment. COMPLICATIONS: None. INDICATIONS FOR THE PROCEDURE: The patient is a 61-year-old male with a history of chronic polypoid rhinosinusitis which has been refractory to maximal medical therapy including systemic antibiotics, systemic steroids, and topical nasal steroids. A posttreatment fusion CT scan of the sinuses revealed pansinusitis with bilateral inferior turbinate hypertrophy. He presents for the above-mentioned procedures on an outpatient elective basis. DESCRIPTION OF PROCEDURE: After informed consent had been obtained from the patient, the patient was wheeled to the operating room and placed on the operating table in the supine position. Monitors were placed. After induction of general endotracheal anesthesia, the patient was prepped in the usual fashion for image guided endoscopic sinus surgery. The Feedo fusion headset was placed on the forehead and was registered and calibrated and used throughout the case. Lidocaine and epinephrine pledgets were placed in the bilateral nasal cavities and pressure applied. The left-sided pledget was removed. Immediately there was a large nasal polyp filling the vast majority of the left nasal cavity. This was injected with 1% lidocaine with 1:100,000 epinephrine. The right side was then addressed. There was also a large nasal polyp on this side, but it was not filling the entire nasal cavity. This was emanating from the middle meatus primarily in the right side. A polyp was also injected with 1% lidocaine with 1:100,000 epinephrine. A straight Blakesley forceps was used to remove the large left nasal cavity polyp which seemed to be emanating from the middle meatus. This was sent off for permanent pathological assessment. After removal of the vast majority of the polyp using straight Molly forceps, powered instrumentation was used to remove the rest of the nasal polyp which is extending into the nasopharynx posteriorly. Using a curved maxillary suction, the left maxillary sinus was entered and the natural ostium of the maxillary sinus was enlarged anteriorly, inferiorly, and posteriorly using backbiting forceps and powered instrumentation. There was a large left nasal polyp filling the majority of the maxillary sinus and this was removed using a 45-degree Blakesley forceps. This was also sent off for permanent pathological assessment. An uncinatectomy was then performed using powered instrumentation. A complete ethmoidectomy was then performed using powered instrumentation. There was diffuse polyposis within the ethmoid cavity on this side. Using a transnasal approach, the sphenoid sinus ostium was identified and there was a large polyp emanating from it and this was removed using straight Blakesley forceps and sent for permanent pathological assessment. Using image guidance, a curved frontal sinus suction was used to cannulate the left frontal sinus and a size 6 frontal sinus balloon was inserted and inflated to 12 atmospheres of pressure at 3 different locations to dilate the frontal recess tract. Powered instrumentation was then used to remove diseased tissue from the frontal recess. Lidocaine and epinephrine pledget was then placed into the right ethmoid cavity. The right side was then addressed in a similar fashion; however, on this side, the polyposis was not a significant in the nasal cavity. There was also no polyp within the maxillary or sphenoid sinuses. It was difficult to cannulate the frontal sinus and the decision was made not to balloon the right frontal sinus, Instead using image guidance and powered instrumentation alone, diseased tissue was removed from the right frontal recess tract. Multiple attempts at placement of the balloon catheter were performed and this was very difficult even after the frontal sinusotomy. Therefore, the balloon was not used on the right side. A [place] elevator was then used to infracture and subsequently outfracture the inferior turbinates bilaterally. 1% lidocaine with 1:100,000 epinephrine was used to inject the inferior turbinates bilaterally. A 2.0 mm turbinate blade using powered instrumentation was then used to perform bilateral inferior turbinoplasties in the submucosal fashion. The sinonasal cavity was then suctioned. Stammberger nasal dressing mixed 1:1 with Kenalog 40 mg per mL was then instilled into the ethmoid cavities bilaterally. An orogastric tube was placed and the stomach was suctioned free of air and stomach contents. This marked the end of the case. The patient tolerated the procedure well. There were no apparent complications. The patient was extubated and transferred to recovery room in stable condition. I attest to the content of the Intraoperative Record and any orders documented therein. Any exception s are noted below.
[2017-03-29 09:28] VITALS: BP 113/70; PULSE 82; O2SAT 93
--- NOTE | 2017-03-29 09:44 | Anesthesia Progress Nt - [facility] ---
Anesthesia Post Op Note Date & Time Mar 29, 2017 at 09:44 Vital Signs Pain Intensity: 0 Vital Signs Past 12 Hours Date Time Temp Pulse Resp B/P (MAP) Pulse Ox O2 Delivery O2 Flow Rate FiO2 03/29/17 09:28 82 18 113/70 (84) 93 Room Air 03/29/17 08:56 36.4 90 20 116/73 (87) 93 Room Air 03/29/17 08:53 36.4 03/29/17 08:50 120/80 (92) 03/29/17 08:48 92 12 03/29/17 08:48 91 12 95 03/29/17 08:47 Room Air 03/29/17 08:09 36.6 99 16 141/92 100 Diffusion Mask 5 03/29/17 06:49 36.3 100 18 147/96 (113) 93 Room Air Notes Mental Status: alert / awake / arousable, participated in evaluation Pt Amnestic to Procedure: Yes Nausea / Vomiting: adequately controlled Pain: adequately controlled Airway Patency, RR, SpO2: stable & adequate BP & HR: stable & adequate Hydration State: stable & adequate Anesthetic Complications: no major complications apparent
== END | disposition home or self-care (01) ==
LOC: X.SURG 06:21
DX: J32.9 Chronic sinusitis, unspecified (principal); J33.8 Other polyp of sinus; J34.3 Hypertrophy of nasal turbinates; J44.9 Chronic obstructive pulmonary disease, unspecified; I10 Essential (primary) hypertension; K21.9 Gastro-esophageal reflux disease without esophagitis; M19.90 Unspecified osteoarthritis, unspecified site; E11.9 Type 2 diabetes mellitus without complications; F41.9 Anxiety disorder, unspecified; F32.9 Major depressive disorder, single episode, unspecified; J45.909 Unspecified asthma, uncomplicated; F17.200 Nicotine dependence, unspecified, uncomplicated; Z88.2 Allergy status to sulfonamides; Z88.1 Allergy status to other antibiotic agents; Z79.899 Other long term (current) drug therapy

== ENCOUNTER 2017-04-26 21:35 | Emergency (ER) | payer OTHER ==
[~2017-04-26] VITALS: Ht 177.8 cm; Wt 129.1 kg
[~2017-04-26 21:35] MED LIST changes: -CLIN1SOL23 TOP; -FLUT50SP45; -METH4PAK PO
[2017-04-26 21:42] VITALS: TEMP 37.6; Ht 177.8 cm; Wt 129.1 kg
[2017-04-26] MEDS ORDERED: ALBUT/IPRATROP 3MG/0.5MG NEB 3 ML VIAL INH STA (22:08)
[2017-04-26 22:10] LABS: BASO % 0.3 %; BASO ABS # 0.01 K/uL (0-0.2); EOS % 0.6 %; EOS ABS # 0.02 K/uL (0-0.5); HEMATOCRIT 46.3 % (42-52); HEMOGLOBIN 15.6 g/dL (14.0-18.0); IG# 0.01 K/uL (0.00-0.02); LYMPH % 24.4 %; LYMPH ABS # 0.88 K/uL (1.2-3.4); MEAN CELL VOLUME 89.7 fL (80-100); MEAN CORPUSCULAR HEMOGLOBIN 30.2 pg (25-34); MEAN CORPUSCULAR HGB CONC 33.7 g/dl (32-36); MEAN PLATELET VOLUME 10.5 fL (7.4-10.4); MONO % 7.2 %; MONO ABS # 0.26 K/uL (0.11-0.59); NEUT % 67.2 %; NEUT ABS # 2.43 K/uL (1.4-6.5); PLATELET COUNT 165 K/uL (130-400); RED CELL DISTRIBUTION WIDTH CV 14.1 % (11.5-14.5); RED CELL DISTRIBUTION WIDTH SD 46.7 fL (36.4-46.3); WHITE BLOOD COUNT 3.61 K/uL (4.8-10.8)
[2017-04-26] MEDS ORDERED: SODIUM CHLORIDE 0.9% 1000ML 1,000 ML IV STA (22:10)
[2017-04-26 22:18] LABS: ALBUMIN 3.3 gm/dl (3.4-5.0); ALT/SGPT 35 U/L (12-78); AST/SGOT 26 U/L (15-37); BLOOD UREA NITROGEN 14 mg/dl (7-18); CALCIUM 8.8 mg/dl (8.5-10.1); CARBON DIOXIDE 26 mmol/L (21-32); CREATININE 1.04 mg/dl (0.60-1.40); GLUCOSE 122 mg/dl (70-99); POTASSIUM 4.3 mmol/L (3.5-5.1); SODIUM 137 mmol/L (136-145)
[2017-04-26 22:20] LABS: ALKALINE PHOSPHATASE 99 U/L (45-117); TOTAL PROTEIN 7.8 gm/dl (6.4-8.2)
[2017-04-26 22:27] VITALS: O2SAT 91
--- NOTE | 2017-04-26 22:28 | DIAGNOSTIC IMAGING REPORT ---
CHEST ONE VIEW PORTABLE CLINICAL HISTORY: cough, sob COMPARISON STUDY: 04/26/2017 FINDINGS: There is severe pulmonary emphysema. There is secondary bronchovascular crowding/atelectasis at the lung bases. The heart is normal in size. There is no failure. There are no pleural effusions.[ IMPRESSION: Severe emphysema. No acute findings. Electronically signed by: Mihai Dia M.D. 04/26/2017 10:27 PM Dictated Date/Time: 04/26/2017 10:26 PM
[2017-04-26] MEDS ORDERED: ACETAMINOPHEN 500 MG TAB PO STA (23:34)
[2017-04-27] MEDS ORDERED: METH4PAK PO (00:24)
--- NOTE | 2017-04-27 00:26 | EMERGENCY ROOM VISIT NOTE ---
History First contact with patient: 21:54 Chief Complaint: ILLNESS Stated Complaint: CHEST PAIN History of Present Illness The patient is a 61 year old male who presents to the Emergency Room with complaints of trouble breathing. The patient reports that he has "junk in his chest." He states that he has had a cough which has been productive at times. His symptoms started 3 days ago. He states that his chest feels tight and he has difficulty breathing. He was seen at his PCP today and had an EKG, chest x- ray and negative flu swab. He was given a steroid injection and discharged home. The patient reports a history of emphysema. He is a former smoker. He denies history of blood clots. He has not been eating or drinking much. He does state that his furnace broke down 3-4 days ago and he repaired it himself. He is concerned about carbon monoxide poisoning, although he notes that his carbon monoxide monitors have not gone off. The patient denies chest pain. The patient rates his overall discomfort a 5/10. Review of Systems A complete 10 point review of systems was reviewed with the patient with pertinent positives and negatives as per history of present illness. All else were negative. 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 (3) Hypertension (4) Hypertension Nos (5) No significant past medical history (6) Tobacco Use Disorder Surgical Problems: (1) No history of previous surgery Social History Problems: (1) Weight loss Family History Hypertension Social History Smoking Status: Former Smoker Alcohol Use: none Drug Use: none Marital Status: Occupation Status: employed Current/Historical Medications Scheduled Alprazolam (Xanax), 1 MG PO TID Cholecalciferol (Vitamin D3), 1 CAP PO HS Clindamycin Phos (Clindamycin Phosphate), 1 APPLN TOP BID Cyanocobalamin (Vitamin B-12), 1,000 MCG PO Q2D Docusate Sodium (Colace), 100 MG PO BID Gabapentin (Neurontin), 300 MG PO TID Methylprednisolone (Medrol Dosepak), 0 PO DAILY Metoprolol Succ (Toprol Xl) (Toprol-Xl), 25 MG PO QAM Nortriptyline Hcl (Pamelor), 10 MG PO TID Pantoprazole (Protonix), 40 MG PO QAM Triamcinolone Acetonide (Topic (Triamcinolone Acet 0.025%), 1 APPLN TOP BID Scheduled PRN Linaclotide (Linzess), 1 CAP PO QAM PRN for PRN Promethazine HCl (Promethazine HCl), 25 MG PO Q6 PRN for Nausea or Vomiting Tiotropium [place] (Spiriva Handihaler), 1 CAP INH DAILY PRN for Shortness of Breath Physical Exam Vital Signs Date Time Temp Pulse Resp B/P (MAP) Pulse Ox O2 Delivery O2 Flow Rate FiO2 04/27/17 00:33 95 17 141/83 92 04/26/17 23:05 94 18 98 04/26/17 23:04 134/80 04/26/17 22:35 102 19 100 04/26/17 22:31 124/91 04/26/17 22:27 125/92 04/26/17 22:27 91 Room Air 04/26/17 22:05 110 30 95 04/26/17 22:01 107/85 04/26/17 22:01 109 04/26/17 21:42 37.6 110 20 121/86 95 Room Air 04/26/17 21:39 121/86 Physical Exam VITALS: Vitals are noted on the nurse's note and reviewed by myself. Vital signs stable. GENERAL: This is a 61-year-old male, in no acute distress, nondiaphoretic, well- developed well-nourished. SKIN: The skin was without rashes. EARS: External auditory canals clear, tympanic membranes pearly green without erythema or effusion bilaterally. EYES: Pupils equal round and reactive to light and accommodation. MOUTH: Mucous membranes moist. Tonsils are not enlarged. Pharynx without erythema or exudate. NECK: Supple without nuchal rigidity. No lymphadenopathy. HEART: Regular rate and rhythm without murmurs gallops or rubs. LUNGS: Decreased breath sounds throughout. No accessory muscle use. NEURO: Patient was alert and oriented to person place and time. Medical Decision & Procedures ER Provider Diagnostic Interpretation: CHEST ONE VIEW PORTABLE CLINICAL HISTORY: cough, sob COMPARISON STUDY: 04/26/2017 FINDINGS: There is severe pulmonary emphysema. There is secondary bronchovascular crowding/atelectasis at the lung bases. The heart is normal in size. There is no failure. There are no pleural effusions.[ IMPRESSION: Severe emphysema. No acute findings. Laboratory Results 04/26/17 21:25 Red Blood Count 5.16, Mean Corpuscular Volume 89.7, Mean Corpuscular Hemoglobin 30.2, Mean Corpuscular Hemoglobin Concent 33.7, Mean Platelet Volume 10.5, Neutrophils (%) (Auto) 67.2, Lymphocytes (%) (Auto) 24.4, Monocytes (%) (Auto) 7.2, Eosinophils (%) (Auto) 0.6, Basophils (%) (Auto) 0.3, Neutrophils # (Auto) 2.43, Lymphocytes # (Auto) 0.88, Monocytes # (Auto) 0.26, Eosinophils # (Auto) 0.02, Basophils # (Auto) 0.01 04/26/17 21:25 Test 04/26/17 21:25 04/26/17 23:10 White Blood Count 3.61 K/uL (4.8-10.8) Red Blood Count 5.16 M/uL (4.7-6.1) Hemoglobin 15.6 g/dL (14.0-18.0) Hematocrit 46.3 % (42-52) Mean Corpuscular Volume 89.7 fL (80-100) Mean Corpuscular Hemoglobin 30.2 pg (25-34) Mean Corpuscular Hemoglobin Concent 33.7 g/dl (32-36) Platelet Count 165 K/uL (130-400) Mean Platelet Volume 10.5 fL (7.4-10.4) Neutrophils (%) (Auto) 67.2 % Lymphocytes (%) (Auto) 24.4 % Monocytes (%) (Auto) 7.2 % Eosinophils (%) (Auto) 0.6 % Basophils (%) (Auto) 0.3 % Neutrophils # (Auto) 2.43 K/uL (1.4-6.5) Lymphocytes # (Auto) 0.88 K/uL (1.2-3.4) Monocytes # (Auto) 0.26 K/uL (0.11-0.59) Eosinophils # (Auto) 0.02 K/uL (0-0.5) Basophils # (Auto) 0.01 K/uL (0-0.2) RDW Standard Deviation 46.7 fL (36.4-46.3) RDW Coefficient of Variation 14.1 % (11.5-14.5) Immature Granulocyte % (Auto) 0.3 % Immature Granulocyte # (Auto) 0.01 K/uL (0.00-0.02) D-Dimer 360 ug/L FEU (0-500) Anion Gap 6.0 mmol/L (3-11) Est Creatinine Clear Calc Drug Dose 103.2 ml/min Estimated GFR () 90.7 Estimated GFR (Non- 78.2 BUN/Creatinine Ratio 13.0 (10-20) Calcium Level 8.8 mg/dl (8.5-10.1) Total Bilirubin 0.3 mg/dl (0.2-1) Aspartate Amino Transf (AST/SGOT) 26 U/L (15-37) Alanine Aminotransferase (ALT/SGPT) 35 U/L (12-78) Alkaline Phosphatase 99 U/L (45-117) Troponin I < 0.015 ng/ml (0-0.045) Total Protein 7.8 gm/dl (6.4-8.2) Albumin 3.3 gm/dl (3.4-5.0) Globulin 4.5 gm/dl (2.5-4.0) Albumin/Globulin Ratio 0.7 (0.9-2) Carboxyhemoglobin 0.0 % [facility] Medications Administered Medications (Trade) Dose Ordered Sig/Zahra Route Start Time Stop Time Status Last Admin Dose Admin Albuterol/ Ipratropium (Duoneb) 3 ml NOW STAT INH 04/26/17 22:08 04/26/17 22:10 DC 04/26/17 22:25 3 ML Sodium Chloride 1,000 ml @ 999 mls/hr Q1H1M STAT IV 04/26/17 22:10 04/26/17 23:10 DC 04/26/17 22:25 999 MLS/HR Acetaminophen (Tylenol Tab) 1,000 mg NOW STAT PO 04/26/17 23:34 04/26/17 23:35 DC 04/26/17 23:49 1,000 MG ECG Per My Interpretation Indication: SOB/dyspnea Rate (beats per minute): 110 Rhythm: sinus tachycardia Findings: no acute ischemic change, left axis deviation, no ectopy Change: no significant change Medical Decision Differential diagnosis includes URI, pneumonia, COPD exacerbation, ACS, among others. The patient is a 61-year-old male who presents today complaining of cough and shortness of breath. Patient was seen at his primary care provider's office today as an outpatient and given a prescription for doxycycline. Chest x-ray is negative. Labs revealed no leukocytosis, anemia or concerning electrolyte abnormality. Troponin negative. D-dimer was not elevated. Patient was treated with a DuoNeb with significant improvement. He will be started on a Medrol Dosepak in addition to the doxycycline he is taking. The patient was very anxious that there may be carbon monoxide in the house due to his furnace being repaired recently. A carboxyhemoglobin level was drawn and was found to be 0. After being told this, the patient stated that he was very relieved and admitted that he was very anxious regarding this. I feel this was likely causing some of the patient's tachycardia and chest tightness in addition to an upper respiratory infection. Based on the patient's presentation and work up, I feel the patient is stable for outpatient treatment. The patient was educated to return to the emergency department for any worsening of their current condition or new/concerning symptoms. He will follow up with his PCP. Medication Reconcilliation Current Medication List: was personally reviewed by me Blood Pressure Screening Patient's blood pressure: Normal blood pressure Impression Primary Impression: Upper respiratory infection Additional Impression: COPD exacerbation Departure Information Dispostion Home / Self-Care Condition GOOD Prescriptions Methylprednisolone (MEDROL DOSEPAK) 4 Mg Brent 0 PO DAILY, #1 PKT Prov: Kendra Kinney .ALBERT 04/27/17 Referrals Esmer Bustillos PA-C (PCP) Patient Instructions [facility] Additional Instructions Take the doxycycline as prescribed. You have been prescribed a Medrol Dosepak. This is a steroid which will help decrease your inflammation. Take the medicine as prescribed. Take the ENTIRE 6 day course of the steroids. Use your inhaler as prescribed. Follow-up with your primary care provider within 48 hours for a recheck. Return to the emergency department with any worsening shortness of breath, chest pain, or other new/concerning symptoms. Problem Qualifiers Primary Impression: Upper respiratory infection URI type: unspecified URI Qualified Codes: J06.9 - Acute upper respiratory infection, unspecified
[2017-04-27 00:33] VITALS: BP 141/83; PULSE 95; O2SAT 92
== END 2017-04-27 00:35 | disposition home or self-care (01) ==
LOC: EDBD 21:35 → C.EDA 21:36
DX: J06.9 Acute upper respiratory infection, unspecified (principal); J44.1 Chronic obstructive pulmonary disease with (acute) exacerbation; F41.9 Anxiety disorder, unspecified; I10 Essential (primary) hypertension; K57.30 Diverticulosis of large intestine without perforation or abscess without bleeding; Z87.891 Personal history of nicotine dependence; Z82.49 Family history of ischemic heart disease and other diseases of the circulatory system

== ENCOUNTER → 2017-04-26 | Outpatient (CLI) | payer OTHER ==
[~2017-04-26] MED LIST changes: -ALBUT/IPRATROP 3MG/0.5MG NEB 3 ML VIAL ONE; -ATROPINE SULFATE 0.1 MG/ML 5ML SYR IV PRN; -CHECK SCOPOLAMINE PATCH PLACEMENT SCH; +CLIN1SOL23 TOP; -CLINDAMYCIN PHOS 150 MG/ML 2 ML VIAL IV SCH; -DEXAMETHASONE SOD INJ 4 MG/ML VIAL ONE; -EpHEDrine SULFATE INJ 50 MG/ML AMP IV PRN; -EpHEDrine SULFATE INJ 50 MG/ML AMP ONE; -EpINEphrine INJ 1MG/ML AMP 1 MG/ML AMP ONE; -FENTANYL CITRATE INJ 50 MCG/1 ML 2 ML VIAL IV PRN; -FENTANYL CITRATE INJ 50 MCG/1 ML 2 ML VIAL ONE; +FLUT50SP45; -FLUT50SP45 NAE; -GLYCOPYRROLATE INJ 0.2 MG/ML VIAL ONE; -HYDROCODONE/ACETAMIN 5/325MG TAB PO PRN; -LACTATED RINGER'S 1000ML 1,000 ML IV SCH; -LIDOCAINE 4% MPF SOAK 5 ML = 1 DOSE TOP ONE; -LIDOCAINE HCL 2% 2 ML VIAL (20MG/ML) ONE; -LIDOCAINE/EPINEPHRINE 1% 20 ML VIAL ONE; +METH4PAK PO; -NEOSTIGMINE METHYLSULFATE 5 MG/5 ML SYR ONE; -ONDANSETRON INJ 2 MG/ML 2 ML VIAL IV PRN; -ONDANSETRON INJ 2 MG/ML 2 ML VIAL ONE; -OXYMETAZOLINE HCL 0.05% NA SPR 15 ML BTL NAE SCH; -OXYMETAZOLINE HCL 0.05% NA SPR 15 ML BTL PRN; -PHENYLEPHRINE HCL INJ 10 MG/ML VIAL ONE; -PROPOFOL IV EMULSION 10 MG/ML 20 ML VIAL IV ONE; -SCOPOLAMINE 1.5 MG TDSY TD ONE; -TRIAMCINOLONE ACET 40 MG/ML VIAL ONE
--- NOTE | 2017-04-26 15:54 | DIAGNOSTIC IMAGING REPORT ---
CHEST 2 VIEWS ROUTINE HISTORY: 61 years-old Male J20.9 acute illness COMPARISON: Portable chest radiograph 01/07/2017 TECHNIQUE: PA and lateral views of the chest FINDINGS: Cardiomediastinal and hilar silhouettes are within normal limits. Atherosclerosis of the aorta. Lungs are hyperinflated with increased lucency suggesting emphysema. There is no pneumothorax, pleural effusion, focal airspace consolidation or overt pulmonary edema. Minimal linear subsegmental atelectasis of the lung bases. The bones of the chest appear grossly intact. Degenerative changes are noted within the shoulders and spine. IMPRESSION: Emphysema without acute process. The above report was generated using voice recognition software. It may contain grammatical, syntax or spelling errors. Electronically signed by: Bao Lundberg M.D. 04/26/2017 3:53 PM Dictated Date/Time: 04/26/2017 3:51 PM
== END | disposition home or self-care (01) ==
LOC: C.RADBC 15:02
PROVIDERS: ATTEND Physician Assistant Medical
DX: J20.9 Acute bronchitis, unspecified (principal); J43.9 Emphysema, unspecified

== ENCOUNTER 2017-04-29 14:24 | Emergency (ER) | payer OTHER ==
[~2017-04-29 14:24] MED LIST changes: +METH4PAK PO
[2017-04-29 14:25] VITALS: TEMP 36.9
[2017-04-29 14:38] VITALS: O2SAT 96
[2017-04-29] MEDS ORDERED: IPRATROPIUM BROMIDE NEB SOLN 0.02% 2.5 ML VIAL INH STA (14:44)
[2017-04-29] MEDS ORDERED: ACETAMINOPHEN 500 MG TAB PO STA (14:44)
[2017-04-29] MEDS ORDERED: ONDANSETRON INJ 2 MG/ML 2 ML VIAL IV STA (14:44)
[2017-04-29] MEDS ORDERED: SODIUM CHLORIDE 0.9% 1000ML 1,000 ML IV STA (14:44)
[2017-04-29] MEDS ORDERED: METHYLPREDNISOLONE 125 MG VIAL IV STA (14:44)
[2017-04-29] MEDS ORDERED: LEVALBUTEROL 1.25MG/0.5ML NEB INH STA (14:44)
[2017-04-29] MEDS ORDERED: CLIN1SOL23 TOP (15:00)
[2017-04-29] MEDS ORDERED: FLUT50SP45 (15:00)
--- NOTE | 2017-04-29 15:08 | EMERGENCY ROOM VISIT NOTE ---
History Report prepared by Sharri: Michael Perdomo Under the Supervision of: Dr. Ulises Harris M.D. First contact with patient: 14:42 Chief Complaint: FLU LIKE SX Stated Complaint: SOB History of Present Illness The patient is a 61 year old male who presents to the Emergency Room via ambulance with complaints of worsening flu like symptoms for the past week. He currently rates his discomfort as a 7/10 in severity. The patient states that he has a productive cough, abdominal pain from coughing, shortness of breath, a lack of appetite, nausea, diarrhea, a fever up to 101.6, some "humming in his ears", and three days ago he was in the ED for chest pain, and he states that the pain has not gotten any better. He also notes that his heart rate has been very high. The patient was seen in the ED three days ago, and he was given doxycycline, an inhaler, and a Medrol dose pack, though he was not able to fill the Medrol dose pack yet. The patient states that he has been around people that were sick, and he states that he did not get his flu shot this year. He states that he called his PCP today, and his nurse told him to come to the ED after hearing him breathing and coughing. The patient states that he has a history of emphysema, bronchitis, and pneumonia. He denies any history of heart attacks. Source of History: patient Onset: a week ago Symptom Intensity: 7/10 Quality: other (flu like symptoms) Timing: worsening Associated Symptoms: + fevers, + cough, + chest pain, + SOB, + nausea, + abdominal pain, + diarrhea Review of Systems See HPI for pertinent positives & negatives. A total of 10 systems reviewed and were otherwise negative. 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 (3) Hypertension (4) Hypertension Nos (5) No significant past medical history (6) Tobacco Use Disorder Surgical Problems: (1) No history of previous surgery Social History Problems: (1) Weight loss Family History Hypertension Social History Smoking Status: Former Smoker Alcohol Use: none Drug Use: none Marital Status: Occupation Status: employed Current/Historical Medications Scheduled Alprazolam (Xanax), 1 MG PO TID Cholecalciferol (Vitamin D3), 2,000 UNITS PO HS Clindamycin Phosphate (Topical (Clindamycin Phosphate), 1 APPLN TOP BID Cyanocobalamin (Vitamin B-12), 1,000 MCG PO Q2D Docusate Sodium (Colace), 100 MG PO BID Fluticasone Propionate (Nasal) (Allergy Nasal [place] 24 Ho), 2 SPRAYS N/A BID Gabapentin (Neurontin), 300 MG PO TID Metoprolol Succ (Toprol Xl) (Toprol-Xl), 25 MG PO QAM Nortriptyline Hcl (Pamelor), 10 MG PO TID Pantoprazole (Protonix), 40 MG PO QAM Triamcinolone Acetonide (Topic (Triamcinolone Acet 0.025%), 1 APPLN TOP BID Scheduled PRN Linaclotide (Linzess), 1 CAP PO QAM PRN for PRN Promethazine HCl (Promethazine HCl), 25 MG PO Q6 PRN for Nausea or Vomiting Tiotropium [place] (Spiriva Handihaler), 1 CAP INH DAILY PRN for Shortness of Breath Allergies Coded Allergies: Sulfa Drugs (Verified Allergy, Mild, RASH, 04/29/17) Amoxicillin (Verified Allergy, Unknown, RASH, 04/29/17) Prednisone (Unverified Allergy, Unknown, ., 04/29/17) Physical Exam Vital Signs Date Time Temp Pulse Resp B/P (MAP) Pulse Ox O2 Delivery O2 Flow Rate FiO2 04/29/17 19:05 99 18 140/86 91 04/29/17 18:38 99 20 145/99 90 Room Air 04/29/17 17:30 102 16 140/90 90 Room Air 04/29/17 16:15 85 20 141/83 94 Room Air 04/29/17 15:42 89 17 91 Room Air 04/29/17 14:38 96 Room Air 04/29/17 14:37 106 04/29/17 14:36 96 Room Air 04/29/17 14:25 36.9 108 20 132/94 96 Room Air Physical Exam GENERAL: Patient is in no acute distress. HEENT: No acute trauma, normocephalic atraumatic, mucous membranes moist, no nasal congestion, no scleral icterus. NECK: No stridor, no adenopathy, no meningismus, trachea is midline. LUNGS: Decreased breath sounds with significant decreased sounds at the right base. Few scattered wheezes and crackles heard. HEART: Distant heart tones. Mildly tachycardic. Regular rhythm. No murmurs. ABDOMEN: Soft, nontender, bowel sounds positive, no hernias, no peritonitis. EXTREMITIES: No cyanosis or edema, full range of motion of all the joints without pain or difficulty, no signs for acute trauma. NEUROLOGIC: Oriented x 3, no acute motor or sensory deficits, no focal weakness. SKIN: No rash, no jaundice, no diaphoresis. Medical Decision & Procedures ER Provider Diagnostic Interpretation: Radiology results as stated below per my review and radiologist interpretation: CHEST ONE VIEW PORTABLE HISTORY: 61 years-old Male EVALUATE RESPIRATORY DISTRESS.DYSPNEA acute respiratory distress COMPARISON: Chest radiograph 04/26/2017 TECHNIQUE: Portable AP view of the chest FINDINGS: Cardiomediastinal and hilar silhouettes are within normal limits. No pneumothorax, pleural effusion or focal airspace consolidation. Severe bullous emphysematous disease redemonstrated with areas of chronic interstitial coarsening of the perihilar and bibasilar regions, unchanged compatible with areas of scarring. Unchanged biapical pleural-parenchymal scarring. Bones of the chest appear grossly intact. IMPRESSION: Emphysema without acute process. The above report was generated using voice recognition software. It may contain grammatical, syntax or spelling errors. Electronically signed by: Bao Lundberg M.D. 04/29/2017 3:19 PM Dictated Date/Time: 04/29/2017 3:17 PM Laboratory Results 04/29/17 15:00 Red Blood Count 5.14, Mean Corpuscular Volume 88.1, Mean Corpuscular Hemoglobin 31.5, Mean Corpuscular Hemoglobin Concent 35.8, Mean Platelet Volume 10.5, Neutrophils (%) (Auto) 48.8, Lymphocytes (%) (Auto) 40.4, Monocytes (%) (Auto) 8.4, Eosinophils (%) (Auto) 1.9, Basophils (%) (Auto) 0.5, Neutrophils # (Auto) 2.03, Lymphocytes # (Auto) 1.68, Monocytes # (Auto) 0.35, Eosinophils # (Auto) 0.08, Basophils # (Auto) 0.02 04/29/17 15:00 Test 04/29/17 15:00 04/29/17 15:40 White Blood Count 4.16 K/uL (4.8-10.8) Red Blood Count 5.14 M/uL (4.7-6.1) Hemoglobin 16.2 g/dL (14.0-18.0) Hematocrit 45.3 % (42-52) Mean Corpuscular Volume 88.1 fL (80-100) Mean Corpuscular Hemoglobin 31.5 pg (25-34) Mean Corpuscular Hemoglobin Concent 35.8 g/dl (32-36) Platelet Count 171 K/uL (130-400) Mean Platelet Volume 10.5 fL (7.4-10.4) Neutrophils (%) (Auto) 48.8 % Lymphocytes (%) (Auto) 40.4 % Monocytes (%) (Auto) 8.4 % Eosinophils (%) (Auto) 1.9 % Basophils (%) (Auto) 0.5 % Neutrophils # (Auto) 2.03 K/uL (1.4-6.5) Lymphocytes # (Auto) 1.68 K/uL (1.2-3.4) Monocytes # (Auto) 0.35 K/uL (0.11-0.59) Eosinophils # (Auto) 0.08 K/uL (0-0.5) Basophils # (Auto) 0.02 K/uL (0-0.2) RDW Standard Deviation 45.1 fL (36.4-46.3) RDW Coefficient of Variation 13.8 % (11.5-14.5) Immature Granulocyte % (Auto) 0.0 % Immature Granulocyte # (Auto) 0.00 K/uL (0.00-0.02) Anion Gap 8.0 mmol/L (3-11) Estimated GFR () 108.5 Estimated GFR (Non- 93.6 BUN/Creatinine Ratio 15.8 (10-20) Calcium Level 9.2 mg/dl (8.5-10.1) Magnesium Level 2.1 mg/dl (1.8-2.4) Total Bilirubin 0.3 mg/dl (0.2-1) Aspartate Amino Transf (AST/SGOT) 22 U/L (15-37) Alanine Aminotransferase (ALT/SGPT) 31 U/L (12-78) Alkaline Phosphatase 94 U/L (45-117) Troponin I < 0.015 ng/ml (0-0.045) Total Protein 7.9 gm/dl (6.4-8.2) Albumin 3.5 gm/dl (3.4-5.0) Globulin 4.4 gm/dl (2.5-4.0) Albumin/Globulin Ratio 0.8 (0.9-2) Influenza Type A (RT-PCR) Neg for Influ A (NEG) Influenza Type B (RT-PCR) Neg for Influ B (NEG) Laboratory results reviewed by me. Medications Administered Medications (Trade) Dose Ordered Sig/Zahra Route Start Time Stop Time Status Last Admin Dose Admin Ondansetron HCl (Zofran Inj) 4 mg NOW STAT IV 04/29/17 14:44 04/29/17 14:52 DC 04/29/17 15:07 4 MG Sodium Chloride 1,000 ml @ 999 mls/hr Q1H1M STAT IV 04/29/17 14:44 04/29/17 15:44 DC 04/29/17 15:07 999 MLS/HR Acetaminophen (Tylenol Tab) 1,000 mg NOW STAT PO 04/29/17 14:44 04/29/17 14:52 DC 04/29/17 15:06 1,000 MG Levalbuterol (Xopenex 1.25MG/ 0.5ML Neb) 1.25 mg NOW STAT INH 04/29/17 14:44 04/29/17 14:52 DC 04/29/17 15:42 1.25 MG Ipratropium [place] (Atrovent 0.02% 0.5MG/2.5ML Neb) 0.5 mg NOW STAT INH 04/29/17 14:44 04/29/17 14:52 DC 04/29/17 15:41 0.5 MG Methylprednisolone Sodium Succinate (Solu-Medrol IV) 60 mg NOW STAT IV 04/29/17 14:44 04/29/17 14:52 DC 04/29/17 15:07 60 MG Sodium Chloride 500 ml @ 999 mls/hr Q31M STAT IV 04/29/17 16:51 04/29/17 17:21 DC 04/29/17 17:15 999 MLS/HR Albuterol (Ventolin Hfa Inhaler) 3 puffs NOW ONCE INH 04/29/17 18:15 04/29/17 18:16 DC 04/29/17 18:33 3 PUFFS ECG Per My Interpretation Indication: chest pain, SOB/dyspnea Rate (beats per minute): 102 Rhythm: sinus tachycardia Findings: other (No ST elevation or PVC) ED Course 1442: The patient was evaluated in room C6. A complete history and physical exam was performed. 1444: Solu-Medrol 60mg IV, Atrovent 0.02% 0.5mg/2.5ml Neb INH, Xopenex 1.25mg/ 0.5ml Neb 1.25mg INH, Tylenol Tab 1000mg PO, Sodium Chloride 1000 ml @ 999 mls/ hr IV, Zofran 4mg IV 1651: I reevaluated the patient, and he is doing better, and I updated him on the results thus far. I ordered Sodium Chloride 500 ml @ 999 mls/hr IV 180: Reevaluated the patient. Discussed results and discharge instructions: He verbalized understanding and agreement. The patient is ready for discharge. 181: Albuterol 3 puffs INH Medical Decision Differential diagnoses include: Influenza or flu like illness, pneumonia, bronchitis, CHF exacerbation, COPD, dehydration, electrolyte imbalance, and cardiac ischemia. There is no leukocytosis or concerning anemia. No significant electrolyte abnormality, kidney failure or hepatitis. Influenza testing is negative. Chest film shows some COPD, no pneumonia, CHF or pneumothorax. EKG shows a mild sinus tachycardia, no acute ischemia. Cardiac enzyme testing 1 is not consistent with acute cardiac injury. Blood cultures are pending. The patient presents with what sounds like pneumonia or bronchitis, basically flulike symptoms. He received a Xopenex Atrovent neb, IV Solu-Medrol. He was given oral Tylenol and IV saline. He did receive albuterol via [facility]. The patient is already on doxycycline. 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 He also will need to use his albuterol much more frequently. The patient has an acute bronchitis with a flare of his COPD. He will continue the doxycycline, he will start the Medrol Dosepak, he will use the albuterol more frequently and return here if worsening. He feels much better after receiving IV fluids. Medication Reconcilliation Current Medication List: was personally reviewed by me Blood Pressure Screening Patient's blood pressure: Elevated blood pressure Blood pressure disposition: Elevated BP felt to be situational Impression Primary Impression: Acute bronchitis Additional Impression: COPD exacerbation Scribe Attestation The scribe's documentation has been prepared under my direction and personally reviewed by me in its entirety. I confirm that the note above accurately reflects all work, treatment, procedures, and medical decision making performed by me. Departure Information Dispostion Home / Self-Care Referrals Esmer Bustillos PA-C (PCP) Forms HOME CARE DOCUMENTATION FORM, IMPORTANT VISIT INFORMATION Patient Instructions My [facility] Additional Instructions fill the medrol dos pack script given to you the other day and start the med as directed continue the doxycycline rest fluids albuterol 3 puffs every 4 hours return if worsening as we discussed Problem Qualifiers
--- NOTE | 2017-04-29 15:21 | DIAGNOSTIC IMAGING REPORT ---
CHEST ONE VIEW PORTABLE HISTORY: 61 years-old Male EVALUATE RESPIRATORY DISTRESS.DYSPNEA acute respiratory distress COMPARISON: Chest radiograph 04/26/2017 TECHNIQUE: Portable AP view of the chest FINDINGS: Cardiomediastinal and hilar silhouettes are within normal limits. No pneumothorax, pleural effusion or focal airspace consolidation. Severe bullous emphysematous disease redemonstrated with areas of chronic interstitial coarsening of the perihilar and bibasilar regions, unchanged compatible with areas of scarring. Unchanged biapical pleural-parenchymal scarring. Bones of the chest appear grossly intact. IMPRESSION: Emphysema without acute process. The above report was generated using voice recognition software. It may contain grammatical, syntax or spelling errors. Electronically signed by: Bao Lundberg M.D. 04/29/2017 3:19 PM Dictated Date/Time: 04/29/2017 3:17 PM
[2017-04-29 15:38] LABS: BASO % 0.5 %; BASO ABS # 0.02 K/uL (0-0.2); EOS % 1.9 %; EOS ABS # 0.08 K/uL (0-0.5); HEMATOCRIT 45.3 % (42-52); HEMOGLOBIN 16.2 g/dL (14.0-18.0); LYMPH % 40.4 %; LYMPH ABS # 1.68 K/uL (1.2-3.4); MEAN CELL VOLUME 88.1 fL (80-100); MEAN CORPUSCULAR HEMOGLOBIN 31.5 pg (25-34); MEAN CORPUSCULAR HGB CONC 35.8 g/dl (32-36); MEAN PLATELET VOLUME 10.5 fL (7.4-10.4); MONO % 8.4 %; MONO ABS # 0.35 K/uL (0.11-0.59); NEUT % 48.8 %; NEUT ABS # 2.03 K/uL (1.4-6.5); PLATELET COUNT 171 K/uL (130-400); RED CELL DISTRIBUTION WIDTH CV 13.8 % (11.5-14.5); RED CELL DISTRIBUTION WIDTH SD 45.1 fL (36.4-46.3); WHITE BLOOD COUNT 4.16 K/uL (4.8-10.8)
[2017-04-29 15:42] VITALS: PULSE 89; O2SAT 91
[2017-04-29 15:44] LABS: ALBUMIN 3.5 gm/dl (3.4-5.0); ALT/SGPT 31 U/L (12-78); BLOOD UREA NITROGEN 14 mg/dl (7-18); CALCIUM 9.2 mg/dl (8.5-10.1); CARBON DIOXIDE 25 mmol/L (21-32); CREATININE 0.89 mg/dl (0.60-1.40); GLUCOSE 104 mg/dl (70-99); POTASSIUM 3.6 mmol/L (3.5-5.1); SODIUM 139 mmol/L (136-145)
[2017-04-29 15:49] LABS: ALKALINE PHOSPHATASE 94 U/L (45-117); AST/SGOT 22 U/L (15-37); TOTAL PROTEIN 7.9 gm/dl (6.4-8.2)
[2017-04-29] MEDS ORDERED: SODIUM CHLORIDE 0.9% 500ML 500 ML IV STA (16:51)
[2017-04-29 17:23] LABS: INFLUENZA A PCR Neg for Influ A (NEG); INFLUENZA B PCR Neg for Influ B (NEG)
[2017-04-29] MEDS ORDERED: ALBUTEROL HFA 8 GM INHALER INH ONE (18:15)
[2017-04-29 19:05] VITALS: BP 140/86; PULSE 99; O2SAT 91
== END 2017-04-29 19:07 | disposition home or self-care (01) ==
LOC: EDBD 14:24 → C.EDC 14:26
DX: J44.1 Chronic obstructive pulmonary disease with (acute) exacerbation (principal); J20.9 Acute bronchitis, unspecified; F41.9 Anxiety disorder, unspecified; K57.30 Diverticulosis of large intestine without perforation or abscess without bleeding; I10 Essential (primary) hypertension; Z82.49 Family history of ischemic heart disease and other diseases of the circulatory system; Z87.891 Personal history of nicotine dependence; Z79.899 Other long term (current) drug therapy; Z88.2 Allergy status to sulfonamides; Z88.1 Allergy status to other antibiotic agents; Z88.8 Allergy status to other drugs, medicaments and biological substances

== ENCOUNTER 2017-09-26 14:49 | Emergency (ER) | payer OTHER ==
[~2017-09-26] VITALS: Ht 177.8 cm; Wt 73.4 kg
[~2017-09-26 14:49] MED LIST changes: -CLCS60 TOP; +CLIN1SOL23 TOP; +FLUT50SP45; -METH4PAK PO
[2017-09-26 14:51] VITALS: TEMP 36.7; Ht 177.8 cm; Wt 73.4 kg
[2017-09-26] MEDS ORDERED: SODIUM CHLORIDE 0.9% 1000ML 1,000 ML IV STA (15:12)
--- NOTE | 2017-09-26 15:19 | EMERGENCY ROOM VISIT NOTE ---
History First contact with patient: 14:59 Chief Complaint: ABDOMINAL PAIN Stated Complaint: STOMACH PAIN, DIZZY, NAUSEA, MED SIDE EFFECTS History of Present Illness The patient is a 62 year old male who presents to the Emergency Room with complaints of possible side effects of medication. The patient states that he was recently weaned off of his Xanax and started on gabapentin, paroxetine and propanolol as needed. He reports that previously, he had been taking Xanax, 1 mg 3 times daily for approximately 30 years. He is seeing a provider at [facility]. He states that since switching these medications, he has felt increased gassiness and diarrhea. He states that when he stands up out of bed, he becomes lightheaded and has to sit back down. He has laid in bed all week due to this. He reports that his hands and feet are burning and rates the discomfort a 7/10. He is taking these medications for anxiety and depression. He does admit that he does not take all of his medications as prescribed, and has not been taking his vitamin B12 recently. He also notes that he did not follow the instructions properly on weaning off of the Xanax. He reports increased shortness of breath which happens when he becomes anxious. He denies chest pain, fevers, nausea or vomiting. Review of Systems A complete 10 point review of systems was reviewed with the patient with pertinent positives and negatives as per history of present illness. All else were negative. 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 (3) Hypertension (4) Hypertension Nos (5) No significant past medical history (6) Tobacco Use Disorder Surgical Problems: (1) No history of previous surgery Social History Problems: (1) Weight loss Family History Hypertension Social History Smoking Status: Former Smoker Alcohol Use: none Drug Use: none Marital Status: Housing Status: lives alone Occupation Status: employed Current/Historical Medications Scheduled Alprazolam (Xanax), 1 MG PO BID Cholecalciferol (Vitamin D3), 2,000 UNITS PO HS Cyanocobalamin (Vitamin B-12), 1,000 MCG PO Q2D Gabapentin (Neurontin), 300 MG PO AMPM Metoprolol Succ (Toprol Xl) (Toprol-Xl), 25 MG PO QAM Mirtazapine Soltab (Remeron Soltab), 30 MG PO HS Nortriptyline Hcl (Pamelor), 10 MG PO TID Pantoprazole (Protonix), 40 MG PO QAM Paroxetine (Paxil), 20 MG PO QDD Pyridoxine (Vitamin B6), 100 MG PO DAILY Scheduled PRN Clindamycin Phosphate (Topical (Clindamycin Phosphate), 1 APPLN TOP BID PRN for SORES ON ARM Docusate Sodium (Colace), 100 MG PO BID PRN for Constipation Fluticasone Propionate (Nasal) (Allergy Nasal [place] 24 Ho), 2 SPRAYS N/A BID PRN for CONGESTION Promethazine HCl (Promethazine HCl), 25 MG PO Q6 PRN for Nausea or Vomiting Propranolol (Inderal), 10 MG PO TID PRN for Anxiety Tiotropium [place] (Spiriva Handihaler), 1 CAP INH DAILY PRN for Shortness of Breath Triamcinolone Acetonide (Topic (Triamcinolone Acet 0.025%), 1 APPLN TOP BID PRN for AFFECTED AREAS Physical Exam Vital Signs Date Time Temp Pulse Resp B/P (MAP) Pulse Ox O2 Delivery O2 Flow Rate FiO2 09/26/17 17:51 67 18 119/80 96 09/26/17 16:45 70 20 120/80 96 Room Air 09/26/17 15:30 74 20 115/71 96 Room Air 77 113/77 101 91/65 09/26/17 14:51 36.7 87 18 136/89 95 Room Air Physical Exam VITALS: Vitals are noted on the nurse's note and reviewed by myself. Vital signs stable. GENERAL: This is a 62-year-old male, in no acute distress, nondiaphoretic, well- developed well-nourished. SKIN: The skin was without rashes. HEAD: Normocephalic atraumatic. EARS: External auditory canals clear, tympanic membranes pearly green without erythema or effusion bilaterally. EYES: Pupils equal round and reactive to light and accommodation. MOUTH: Mucous membranes moist. Tonsils are not enlarged. Pharynx without erythema or exudate. NECK: Supple without nuchal rigidity. No lymphadenopathy. HEART: Regular rate and rhythm without murmurs gallops or rubs. LUNGS: Clear to auscultation bilaterally without wheezes, rales or rhonchi. ABDOMEN: Positive bowel sounds x 4. Soft, nontender, without masses or organomegaly. NEURO: Patient was alert and oriented to person place and time. Medical Decision & Procedures ER Provider Diagnostic Interpretation: CHEST ONE VIEW PORTABLE CLINICAL HISTORY: heart racing, sob dyspnea COMPARISON STUDY: No previous studies for comparison. FINDINGS: The bones soft tissues and hemidiaphragms are normal. The cardiomediastinal silhouette is normal. The lungs are clear. The pulmonary vasculature is normal. IMPRESSION: Negative chest. Laboratory Results 09/26/17 15:25 Red Blood Count 5.48, Mean Corpuscular Volume 90.7, Mean Corpuscular Hemoglobin 31.4, Mean Corpuscular Hemoglobin Concent 34.6, Mean Platelet Volume 10.9, Neutrophils (%) (Auto) 56.9, Lymphocytes (%) (Auto) 35.2, Monocytes (%) (Auto) 6.1, Eosinophils (%) (Auto) 1.3, Basophils (%) (Auto) 0.4, Neutrophils # (Auto) 4.42, Lymphocytes # (Auto) 2.73, Monocytes # (Auto) 0.47, Eosinophils # (Auto) 0.10, Basophils # (Auto) 0.03 09/26/17 15:25 Test 09/26/17 15:25 White Blood Count 7.76 K/uL (4.8-10.8) Red Blood Count 5.48 M/uL (4.7-6.1) Hemoglobin 17.2 g/dL (14.0-18.0) Hematocrit 49.7 % (42-52) Mean Corpuscular Volume 90.7 fL (80-100) Mean Corpuscular Hemoglobin 31.4 pg (25-34) Mean Corpuscular Hemoglobin Concent 34.6 g/dl (32-36) Platelet Count 204 K/uL (130-400) Mean Platelet Volume 10.9 fL (7.4-10.4) Neutrophils (%) (Auto) 56.9 % Lymphocytes (%) (Auto) 35.2 % Monocytes (%) (Auto) 6.1 % Eosinophils (%) (Auto) 1.3 % Basophils (%) (Auto) 0.4 % Neutrophils # (Auto) 4.42 K/uL (1.4-6.5) Lymphocytes # (Auto) 2.73 K/uL (1.2-3.4) Monocytes # (Auto) 0.47 K/uL (0.11-0.59) Eosinophils # (Auto) 0.10 K/uL (0-0.5) Basophils # (Auto) 0.03 K/uL (0-0.2) RDW Standard Deviation 43.3 fL (36.4-46.3) RDW Coefficient of Variation 13.1 % (11.5-14.5) Immature Granulocyte % (Auto) 0.1 % Immature Granulocyte # (Auto) 0.01 K/uL (0.00-0.02) Anion Gap 10.0 mmol/L (3-11) Est Creatinine Clear Calc Drug Dose 63.9 ml/min Estimated GFR () 70.7 Estimated GFR (Non- 61.0 BUN/Creatinine Ratio 12.3 (10-20) Calcium Level 8.9 mg/dl (8.5-10.1) Total Bilirubin 0.5 mg/dl (0.2-1) Aspartate Amino Transf (AST/SGOT) 20 U/L (15-37) Alanine Aminotransferase (ALT/SGPT) 28 U/L (12-78) Alkaline Phosphatase 84 U/L (45-117) Total Protein 7.9 gm/dl (6.4-8.2) Albumin 3.7 gm/dl (3.4-5.0) Globulin 4.2 gm/dl (2.5-4.0) Albumin/Globulin Ratio 0.9 (0.9-2) Thyroid Stimulating Hormone (TSH) 1.380 uIu/ml (0.300-4.500) Medications Administered Medications (Trade) Dose Ordered Sig/Zahra Route Start Time Stop Time Status Last Admin Dose Admin Sodium Chloride 1,000 ml @ 999 mls/hr Q1H1M STAT IV 09/26/17 15:12 09/26/17 16:12 DC 09/26/17 15:35 999 MLS/HR Medical Decision Differential diagnosis includes medication reaction, anxiety, dehydration, orthostatic hypotension, electrolyte abnormality, anemia, among others. The patient is a 62-year-old male who presents today complaining of a possible reaction to his medication. The patient's main complaint is that he has been having dizziness when standing up. I think this is likely because he has been taking his propanolol 3 times daily rather than as needed for anxiety. He is taking this in addition to metoprolol. Orthostatic vital signs were positive. Patient was informed that both of these medications lower his blood pressure and I advised him to stop the propanolol for now. Labs revealed no leukocytosis , anemia or concerning electrolyte abnormalities. The patient reports burning of his hands and feet. This may be a reaction to 1 of his new medications or could be due to his vitamin B12 deficiency, as he has not been taking his prescribed B12. The patient has an appointment tomorrow with his psychiatric provider and I advised him to discuss these symptoms with them. He was given 1 L normal saline solution IV and felt much better after this treatment. The patient's case was reviewed with Dr. Perez, ED attending physician, who agreed with my assessment and treatment plan. Based on the patient's presentation and work up, I feel the patient is stable for outpatient treatment. The patient was educated to return to the emergency department for any worsening of their current condition or new/concerning symptoms. He will follow up with his PCP. Medication Reconcilliation Current Medication List: was personally reviewed by me Blood Pressure Screening Patient's blood pressure: Normal blood pressure Impression Primary Impression: Orthostatic hypotension Departure Information Dispostion Home / Self-Care Condition GOOD Referrals Esmer Bustillos PA-C (PCP) Patient Instructions My [facility] [address] Additional Instructions The burning in your hands and feet could be due to low vitamin B12 levels. Make sure you are taking your vitamin B12. Your blood pressure is dropping when you stand up. This is probably because you are taking the propanolol 3 times a day, which is lowering your blood pressure. Stop taking this medication until discussing it with the prescriber. Make sure to rest and drink plenty of fluids. Return to the emergency department as needed for any worsening or new/ concerning symptoms.
[2017-09-26] MEDS ORDERED: PYRI100T4 PO (15:49)
[2017-09-26] MEDS ORDERED: PROP10TA7 PO (15:49)
[2017-09-26] MEDS ORDERED: PARO1TAB27 PO (15:49)
[2017-09-26] MEDS ORDERED: MIRT30TA2 PO (15:49)
[2017-09-26 15:52] LABS: BASO % 0.4 %; BASO ABS # 0.03 K/uL (0-0.2); EOS % 1.3 %; HEMATOCRIT 49.7 % (42-52); HEMOGLOBIN 17.2 g/dL (14.0-18.0); IG# 0.01 K/uL (0.00-0.02); LYMPH % 35.2 %; LYMPH ABS # 2.73 K/uL (1.2-3.4); MEAN CELL VOLUME 90.7 fL (80-100); MEAN CORPUSCULAR HEMOGLOBIN 31.4 pg (25-34); MEAN CORPUSCULAR HGB CONC 34.6 g/dl (32-36); MEAN PLATELET VOLUME 10.9 fL (7.4-10.4); MONO % 6.1 %; MONO ABS # 0.47 K/uL (0.11-0.59); NEUT % 56.9 %; NEUT ABS # 4.42 K/uL (1.4-6.5); PLATELET COUNT 204 K/uL (130-400); RED CELL DISTRIBUTION WIDTH CV 13.1 % (11.5-14.5); RED CELL DISTRIBUTION WIDTH SD 43.3 fL (36.4-46.3); WHITE BLOOD COUNT 7.76 K/uL (4.8-10.8)
--- NOTE | 2017-09-26 16:15 | DIAGNOSTIC IMAGING REPORT ---
CHEST ONE VIEW PORTABLE CLINICAL HISTORY: heart racing, sob dyspnea COMPARISON STUDY: No previous studies for comparison. FINDINGS: The bones soft tissues and hemidiaphragms are normal. The cardiomediastinal silhouette is normal. The lungs are clear. The pulmonary vasculature is normal. IMPRESSION: Negative chest. The above report was generated using voice recognition software. It may contain grammatical, syntax or spelling errors. Electronically signed by: Tl Teixeira M.D. 09/26/2017 4:13 PM Dictated Date/Time: 09/26/2017 4:13 PM
[2017-09-26 16:21] LABS: ALBUMIN 3.7 gm/dl (3.4-5.0); CALCIUM 8.9 mg/dl (8.5-10.1); CREATININE 1.27 mg/dl (0.60-1.40); POTASSIUM 3.9 mmol/L (3.5-5.1); TOTAL PROTEIN 7.9 gm/dl (6.4-8.2)
[2017-09-26 17:51] VITALS: BP 119/80; PULSE 67; O2SAT 96
== END 2017-09-26 17:52 | disposition home or self-care (01) ==
LOC: C.EDB 14:50 → C.EDC 17:52
DX: I95.1 Orthostatic hypotension (principal); I10 Essential (primary) hypertension; F41.9 Anxiety disorder, unspecified; Z87.891 Personal history of nicotine dependence; Z82.49 Family history of ischemic heart disease and other diseases of the circulatory system; Z79.899 Other long term (current) drug therapy

== ENCOUNTER 2017-09-27 11:52 | Emergency (ER) | payer OTHER ==
[~2017-09-27] VITALS: Ht 177.8 cm; Wt 74.1 kg
[~2017-09-27 11:52] MED LIST changes: -LINA1CAP PO; +MIRT30TA2 PO; +PARO1TAB27 PO; +PROP10TA7 PO; +PYRI100T4 PO
[2017-09-27 12:03] VITALS: TEMP 36.6; Ht 177.8 cm; Wt 74.1 kg
--- NOTE | 2017-09-27 12:14 | EMERGENCY ROOM VISIT NOTE ---
History Report prepared by Sharri: Kosta Restrepo Under the Supervision of: Dr. Juan Jose Christensen M.D. First contact with patient: 12:03 Chief Complaint: BACK PAIN Stated Complaint: abd pain History of Present Illness The patient is a 62 year old male with a past medical history of anxiety, diverticulitis, hypertension, and tobacco disorder who presents to the ED with a cc of waxing and waning lower abdominal pain that radiates to the back and testicles beginning this morning. The patient notes that the pain feels like a pressure in the abdomen and a dull ache in the back and testicles. He also describes the pain as a "contraction" like sensation that spasms that worsen with movement. The patient states that he has had a change in his anxiety medications that he did not react well with. His new medications are Paroxetine, Gabapentin, and Propranolol. Positive dysuria, nausea, bowel movements and sleep issues. . Negative for gait problems and vomiting. Source of History: patient Onset: This morning Position: back (lower) Quality: ache, pressure Timing: waxes/wanes Modifying Factors (Worsening): movement Associated Symptoms: + abdominal pain (lower) Review of Systems See HPI for pertinent positives and negatives. A total of ten systems were reviewed and were otherwise negative. 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 (3) Hypertension (4) Hypertension Nos (5) No significant past medical history (6) Tobacco Use Disorder Surgical Problems: (1) No history of previous surgery Social History Problems: (1) Weight loss Family History Hypertension Social History Smoking Status: Former Smoker Alcohol Use: none Drug Use: none Marital Status: Housing Status: lives alone Occupation Status: employed Current/Historical Medications Scheduled Alprazolam (Xanax), 1 MG PO BID Cholecalciferol (Vitamin D3), 2,000 UNITS PO HS Cyanocobalamin (Vitamin B-12), 1,000 MCG PO Q2D Gabapentin (Neurontin), 300 MG PO AMPM Metoprolol Succ (Toprol Xl) (Toprol-Xl), 25 MG PO QAM Mirtazapine Soltab (Remeron Soltab), 30 MG PO HS Nortriptyline Hcl (Pamelor), 10 MG PO TID Pantoprazole (Protonix), 40 MG PO QAM Paroxetine (Paxil), 20 MG PO QDD Pyridoxine (Vitamin B6), 100 MG PO DAILY Scheduled PRN Clindamycin Phosphate (Topical (Clindamycin Phosphate), 1 APPLN TOP BID PRN for SORES ON ARM Docusate Sodium (Colace), 100 MG PO BID PRN for Constipation Fluticasone Propionate (Nasal) (Allergy Nasal [place] 24 Ho), 2 SPRAYS N/A BID PRN for CONGESTION Promethazine HCl (Promethazine HCl), 25 MG PO Q6 PRN for Nausea or Vomiting Propranolol (Inderal), 10 MG PO TID PRN for Anxiety Tiotropium Adel (Spiriva Handihaler), 1 CAP INH DAILY PRN for Shortness of Breath Triamcinolone Acetonide (Topic (Triamcinolone Acet 0.025%), 1 APPLN TOP BID PRN for AFFECTED AREAS Allergies Coded Allergies: Sulfa Drugs (Verified Allergy, Mild, RASH, 09/26/17) Amoxicillin (Verified Allergy, Unknown, RASH, 09/26/17) Prednisone (Verified Allergy, Unknown, ., 09/26/17) Physical Exam Vital Signs Date Time Temp Pulse Resp B/P (MAP) Pulse Ox O2 Delivery O2 Flow Rate FiO2 09/27/17 14:18 73 141/93 98 09/27/17 13:42 70 16 140/91 98 Room Air 09/27/17 12:22 79 09/27/17 12:03 36.6 73 19 155/99 97 Room Air Physical Exam GENERAL: Awake, alert, well-appearing, NAD, edentulous HENT: Normocephalic, atraumatic. EYES: Normal conjunctiva. Sclera non-icteric. PERRL. No anisocoria. NECK: Supple. No nuchal rigidity. FROM. RESPIRATORY: CTAB, no rhonchi, wheezing, crackles CARDIAC: RRR, no MRG ABDOMEN: Soft, NTND, BS+ MSK: No chest wall TTP, no LE edema, left sided lumbar back pain over SI join, + JOSE A, negative straight leg bilaterally, negative obturator and psoas NEURO: GCS 15, CN 2-12 intact, moves all 4s on command, no saddle anesthesia SKIN: No rash or jaundice noted. Medical Decision & Procedures ER Provider Diagnostic Interpretation: Radiology results as stated below per my review and radiologist interpretation: SACRUM AND COCCYX 4 VIEWS CLINICAL HISTORY: Sacroiliac joint pain. FINDINGS: Four views of the sacrum and coccyx are correlated with pelvic CT dated 05/08/2016. The skeletal structures are well mineralized for age. There is no radiographic evidence of sacrococcygeal fracture. The remainder of the visualized bony pelvis appears intact. Minimal sclerotic degenerative change is seen in the sacroiliac joints. No erosive change is suggested. The hip joints are maintained. There is atherosclerotic calcification of the abdominal aorta. No bowel obstruction is seen. IMPRESSION: 1. No acute bony abnormality is seen involving the sacrum or coccyx. 2. Mild sclerotic degenerative change is noted in the sacroiliac joints. Dictated: 09/27/2017 1:15 PM Transcribed: 09/27/2017 1:56 PM [facility] Electronically signed by: Ulises Anguiano M.D. 09/27/2017 2:01 PM Dictated Date/Time: 09/27/2017 1:15 PM Laboratory Results 09/27/17 12:40 Red Blood Count 5.14, Mean Corpuscular Volume 90.9, Mean Corpuscular Hemoglobin 31.9, Mean Corpuscular Hemoglobin Concent 35.1, Mean Platelet Volume 10.3, Neutrophils (%) (Auto) 54.9, Lymphocytes (%) (Auto) 37.5, Monocytes (%) (Auto) 4.8, Eosinophils (%) (Auto) 1.8, Basophils (%) (Auto) 0.9, Neutrophils # (Auto) 3.75, Lymphocytes # (Auto) 2.56, Monocytes # (Auto) 0.33, Eosinophils # (Auto) 0.12, Basophils # (Auto) 0.06 09/27/17 12:40 Test 09/27/17 12:40 White Blood Count 6.83 K/uL (4.8-10.8) Red Blood Count 5.14 M/uL (4.7-6.1) Hemoglobin 16.4 g/dL (14.0-18.0) Hematocrit 46.7 % (42-52) Mean Corpuscular Volume 90.9 fL (80-100) Mean Corpuscular Hemoglobin 31.9 pg (25-34) Mean Corpuscular Hemoglobin Concent 35.1 g/dl (32-36) Platelet Count 183 K/uL (130-400) Mean Platelet Volume 10.3 fL (7.4-10.4) Neutrophils (%) (Auto) 54.9 % Lymphocytes (%) (Auto) 37.5 % Monocytes (%) (Auto) 4.8 % Eosinophils (%) (Auto) 1.8 % Basophils (%) (Auto) 0.9 % Neutrophils # (Auto) 3.75 K/uL (1.4-6.5) Lymphocytes # (Auto) 2.56 K/uL (1.2-3.4) Monocytes # (Auto) 0.33 K/uL (0.11-0.59) Eosinophils # (Auto) 0.12 K/uL (0-0.5) Basophils # (Auto) 0.06 K/uL (0-0.2) RDW Standard Deviation 43.2 fL (36.4-46.3) RDW Coefficient of Variation 12.9 % (11.5-14.5) Immature Granulocyte % (Auto) 0.1 % Immature Granulocyte # (Auto) 0.01 K/uL (0.00-0.02) Urine Color YELLOW Urine Appearance CLEAR (CLEAR) Urine pH 7.0 (4.5-7.5) Urine Specific [place] 1.024 (1.000-1.030) Urine Protein NEG (NEG) Urine Glucose (UA) NEG (NEG) Urine Ketones NEG (NEG) Urine Occult Blood NEG (NEG) Urine Nitrite NEG (NEG) Urine Bilirubin NEG (NEG) Urine Urobilinogen NEG (NEG) Urine Leukocyte Esterase NEG (NEG) Anion Gap 5.0 mmol/L (3-11) Est Creatinine Clear Calc Drug Dose 75.8 ml/min Estimated GFR () 87.0 Estimated GFR (Non- 75.1 BUN/Creatinine Ratio 13.2 (10-20) Calcium Level 8.8 mg/dl (8.5-10.1) Total Bilirubin 0.6 mg/dl (0.2-1) Direct Bilirubin 0.2 mg/dl (0-0.2) Aspartate Amino Transf (AST/SGOT) 19 U/L (15-37) Alanine Aminotransferase (ALT/SGPT) 28 U/L (12-78) Alkaline Phosphatase 72 U/L (45-117) Total Protein 7.4 gm/dl (6.4-8.2) Albumin 3.6 gm/dl (3.4-5.0) Lipase 67 U/L (73-393) Laboratory results reviewed by me Medications Administered Medications (Trade) Dose Ordered Sig/Zahra Route Start Time Stop Time Status Last Admin Dose Admin Ketorolac Tromethamine (Toradol Inj) 30 mg NOW STAT IV 09/27/17 12:21 09/27/17 12:23 DC 09/27/17 12:44 30 MG Lorazepam (Ativan Tab) 1 mg NOW STAT PO 09/27/17 12:21 09/27/17 12:23 DC 09/27/17 12:43 1 MG ED Course 1208: The patient was evaluated in room C2B. A complete history and physical exam was performed. 1418: The patient was cleared by psych employment evaluator/case manager. I reevaluated the patient. Discussed results and discharge instructions: He verbalized understanding and agreement. The patient is ready for discharge. Medical Decision Nursing notes reviewed. Ancillary studies and prior records reviewed. Differential diagnosis: Etiologies such as musculoskeletal, disc herniation, fracture, aortic disease, metastatic disease, cord compression, discitis, infection, renal colic, gastrointestinal, acute exacerbation of chronic back pain, sciatica, cauda equina, sacroiliitis as well as others were entertained. Patient was seen and evaluated the bedside. Patient was complaining of having a bad week. The patient did have a recent change in anxiety medications and was taken off benzodiazepines and switch to propranolol gabapentin 1 other medication. The patient also does complain of some waxing waning tenderness in his low back which radiates to the front of the abdomen. The patient does have a positive Jose A test and reproducible discomfort over the SI joint. Patient has an unremarkable abdominal exam the patient has a negative obturators and so as. Patient did have blood work completed and was given medications for symptom control. Patient's blood work unremarkable. Urinalysis negative for infection. Patient' s plain film does not show any evidence of any fracture dislocation. Patient was seen and evaluated by psych employment evaluator/case manager given the patient's concern for safety at home and persistent anxiety. Patient was medically cleared. Patient was given strict follow-up, discharge, and return precautions. All questions were answered. Patient was deemed suitable for outpatient follow-up at this time. Patient agreed with the plan of care and was safely discharged home. Medication Reconcilliation Current Medication List: was personally reviewed by me Blood Pressure Screening Patient's blood pressure: Elevated blood pressure Blood pressure disposition: Elevated BP felt to be situational Impression Primary Impression: Sacroiliitis Additional Impressions: Back pain Anxiety Scribe Attestation The scribe's documentation has been prepared under my direction and personally reviewed by me in its entirety. I confirm that the note above accurately reflects all work, treatment, procedures, and medical decision making performed by me. Departure Information Dispostion Home / Self-Care Referrals Esmer Bustillos PA-C (PCP) Forms HOME CARE DOCUMENTATION FORM, IMPORTANT VISIT INFORMATION Patient Instructions [facility] Problem Qualifiers
[2017-09-27] MEDS ORDERED: LORAZEPAM 1 MG TAB PO STA (12:21)
[2017-09-27] MEDS ORDERED: KETOROLAC TROMETHAMINE 30 MG/ML VIAL IV STA (12:21)
[2017-09-27 12:51] LABS: BASO % 0.9 %; BASO ABS # 0.06 K/uL (0-0.2); EOS % 1.8 %; EOS ABS # 0.12 K/uL (0-0.5); HEMATOCRIT 46.7 % (42-52); HEMOGLOBIN 16.4 g/dL (14.0-18.0); IG# 0.01 K/uL (0.00-0.02); LYMPH % 37.5 %; LYMPH ABS # 2.56 K/uL (1.2-3.4); MEAN CELL VOLUME 90.9 fL (80-100); MEAN CORPUSCULAR HEMOGLOBIN 31.9 pg (25-34); MEAN CORPUSCULAR HGB CONC 35.1 g/dl (32-36); MEAN PLATELET VOLUME 10.3 fL (7.4-10.4); MONO % 4.8 %; MONO ABS # 0.33 K/uL (0.11-0.59); NEUT % 54.9 %; NEUT ABS # 3.75 K/uL (1.4-6.5); PLATELET COUNT 183 K/uL (130-400); RED CELL DISTRIBUTION WIDTH CV 12.9 % (11.5-14.5); RED CELL DISTRIBUTION WIDTH SD 43.2 fL (36.4-46.3); WHITE BLOOD COUNT 6.83 K/uL (4.8-10.8)
[2017-09-27 13:08] LABS: ALBUMIN 3.6 gm/dl (3.4-5.0); CALCIUM 8.8 mg/dl (8.5-10.1); CREATININE 1.07 mg/dl (0.60-1.40); POTASSIUM 3.9 mmol/L (3.5-5.1); TOTAL PROTEIN 7.4 gm/dl (6.4-8.2)
--- NOTE | 2017-09-27 13:57 | DIAGNOSTIC IMAGING REPORT ---
SACRUM AND COCCYX 4 VIEWS CLINICAL HISTORY: Sacroiliac joint pain. FINDINGS: Four views of the sacrum and coccyx are correlated with pelvic CT dated 05/08/2016. The skeletal structures are well mineralized for age. There is no radiographic evidence of sacrococcygeal fracture. The remainder of the visualized bony pelvis appears intact. Minimal sclerotic degenerative change is seen in the sacroiliac joints. No erosive change is suggested. The hip joints are maintained. There is atherosclerotic calcification of the abdominal aorta. No bowel obstruction is seen. IMPRESSION: 1. No acute bony abnormality is seen involving the sacrum or coccyx. 2. Mild sclerotic degenerative change is noted in the sacroiliac joints. Dictated: 09/27/2017 1:15 PM Transcribed: 09/27/2017 1:56 PM [facility] Electronically signed by: Ulises Anguiano M.D. 09/27/2017 2:01 PM Dictated Date/Time: 09/27/2017 1:15 PM
[2017-09-27 14:18] VITALS: BP 141/93; PULSE 73; O2SAT 98
== END 2017-09-27 14:18 | disposition home or self-care (01) ==
LOC: EDBD 11:52 → C.EDC 11:52
DX: M46.1 Sacroiliitis, not elsewhere classified (principal); F41.9 Anxiety disorder, unspecified; I10 Essential (primary) hypertension; Z87.19 Personal history of other diseases of the digestive system; Z87.891 Personal history of nicotine dependence; Z88.1 Allergy status to other antibiotic agents; Z88.2 Allergy status to sulfonamides; Z88.8 Allergy status to other drugs, medicaments and biological substances

== ENCOUNTER 2019-12-25 05:07 | Observation (INO) ==
--- NOTE | 2019-11-23 15:06 | PAT Medication Instructions ---
Medication Instructions Date of Service November 23, 2019 Home Medications Medication Instructions Recorded promethazine 25 mg tablet 25 mg PO Q6H PRN #60 tab 09/28/19 nortriptyline 10 mg PO TID albuterol sulfate 90 mcg/actuation aerosol inhaler 2 puffs INHALATION Q4H PRN gabapentin 300 mg capsule 300 mg PO TID PRN mirtazapine 45 mg tablet 45 mg PO HS paroxetine HCl 20 mg tablet 20 mg PO BID quetiapine 25 mg tablet 25 mg PO HS promethazine 25 mg tablet 25 mg PO Q6H PRN atorvastatin 10 mg PO QPM lisinopril 10 mg PO QDL metoprolol succinate 25 mg PO QDL pantoprazole 40 mg PO QAM quetiapine 100 mg PO HS tiotropium bromide 2 puffs INHALATION QPM Take morning of surgery With a small sip of water, OTHERWISE NOTHING TO EAT OR DRINK AFTER MIDNIGHT: nortriptyline 10 mg PO TID albuterol sulfate 90 mcg/actuation aerosol inhaler 2 puffs INHALATION Q4H PRN (if needed, and bring with you to the hospital) gabapentin 300 mg capsule 300 mg PO TID PRN (if needed) paroxetine HCl 20 mg tablet 20 mg PO BID promethazine 25 mg tablet 25 mg PO Q6H PRN (if needed) metoprolol succinate 25 mg PO QDL (depending on time of surgery) pantoprazole 40 mg PO QAM Take evening before surgery nortriptyline 10 mg PO TID albuterol sulfate 90 mcg/actuation aerosol inhaler 2 puffs INHALATION Q4H PRN (if needed) gabapentin 300 mg capsule 300 mg PO TID PRN (if needed) mirtazapine 45 mg tablet 45 mg PO HS paroxetine HCl 20 mg tablet 20 mg PO BID quetiapine 25 mg tablet 25 mg PO HS promethazine 25 mg tablet 25 mg PO Q6H PRN (if needed) atorvastatin 10 mg PO QPM quetiapine 100 mg PO HS tiotropium bromide 2 puffs INHALATION QPM Other Notes If you have any questions please call us at [phone] or [phone] or [phone] or [phone]
--- NOTE | 2019-11-25 12:53 | Anesthesiology Consultation ---
Date of Service November 25, 2019 Assessment & Plan (1) Encounter for pre-operative examination: COVID Status: As of 11/24 assessment, patient denies travel to endemic area, known exposure/sick contacts, or symptoms of COVID19. Patient instructed that they and their household members must follow strict social distancing guidelines, wear a mask in public and avoid travel for 14 days prior to surgery. Preoperative COVID19 testing to be completed prior to surgery per surgeon's arra ngements. Patient made aware to self-isolate as much as possible between COVID testing and surgery. Patient reports remote history of "fainting" when Novocaine administered at dentist's office. Has had subsequent dental surgeries with no issues. [place] [facility] [place], given Lidocaine IV, no issues noted, no complications. Chart Review Chart Review: Acceptable Risk for Surgery and Patient seen in Pre Admission T esting Teaching & Discussion Instructed NPO after midnight before surgery, except medications with 15 cc of water. Medication instructions provided according to the PAT guidelines. History Surgery Operation Date: 12/25/19 07:00 Proposed Procedures p Left Knee Arthroplasty Unicompartment versus - Avery Wilcox MD s Total Knee Arthroplasty - Avery Wilcox MD Height/Weight Height: 5 ft 10 in Weight: 85.5 kg Allergies Allergy/AdvReac Type Severity Reaction Status Date / Time amoxicillin Allergy Unknown RASH Verified 11/23/19 14:58 prednisone Allergy Unknown [place] Verified 11/23/19 14:58 Sulfa (Sulfonamide AdvReac Mild RASH Verified 11/23/19 14:58 Antibiotics) procaine [From Novocain] AdvReac Fainting Verified 11/25/19 12:56 single episode Medications Home Medications Medication Instructions Recorded Confirmed Last Taken nortriptyline 10 mg PO TID 11/05/17 11/23/19 06/05/18 albuterol sulfate 90 mcg/actuation 2 puffs INHALATION Q4H PRN #1 gm 09/16/18 11/23/19 Unknown aerosol inhaler gabapentin 300 mg capsule 300 mg PO TID PRN cap 09/16/18 11/23/19 Unknown mirtazapine 45 mg tablet 45 mg PO HS #90 tab 09/16/18 11/23/19 Unknown paroxetine HCl 20 mg tablet 20 mg PO BID tab 09/16/18 11/23/19 Unknown quetiapine 25 mg tablet 25 mg PO HS tab 09/16/18 11/23/19 Unknown promethazine 25 mg tablet 25 mg PO Q6H PRN #60 tab 09/28/19 11/23/19 Unknown atorvastatin 10 mg PO QPM 11/23/19 11/23/19 Unknown lisinopril 10 mg PO QDL 11/23/19 11/23/19 Unknown metoprolol succinate 25 mg PO QDL 11/23/19 11/23/19 Unknown pantoprazole 40 mg PO QAM 11/23/19 11/23/19 Unknown quetiapine 100 mg PO HS 11/23/19 11/23/19 Unknown tiotropium bromide 2 puffs INHALATION QPM 11/23/19 11/23/19 Unknown Past Medical History Medical History (Updated 11/25/19 @ 16:10 by Giovanni Deleon) Asthma uses PRN inh 1-2 x wk on average BPH (benign prostatic hyperplasia) COPD (chronic obstructive pulmonary disease) Coronary artery calcification Noted on [address] Patient already on statin, BB and Lisinopril. Negative Dobutamine stress echo 04/28/19. Depression with anxiety GERD (gastroesophageal reflux disease) Heart palpitations CONTROLLED WITH BETA CHALO Hypertension Irritable bowel syndrome with constipation Osteoarthritis Prediabetes MONITORED Premature atrial contraction Exercise / Class Metabolic Activity III < 4 Walking/Shop/Light housework (+SOB with any ambulation, staes "my breat debby is pretty bad, and gets chest pressure with exertion or anxiety) Note: pt had NEGATIVE DSE in 04/2019. Past Family History Family History Mother Anxiety Depression Breast cancer Seizure Father Anxiety Depression Myocardial infarction Other Family history non-contributory No family history of adverse response to anesthesia Past Surgical History Surgical History History of colonoscopy History of hernia repair 06/06/2018 [facility] History of sinus surgery Past Anesthesia History No Hx of Anesthesia Complications and No Family Hx of Anesthesia Complications History of PONV No Hx of PONV and Hx of Motion Sickness (occ) Social History Smoking Status: Former smoker tobacco type: cigarettes Smoking cigarettes per day: 30 Do You Dip or Chew Tobacco: No Smoking End Date: 7-8 years ago Hx Alcohol Use: No Hx Substance Use: No substance use type: does not use Review of Systems Pt denies any recent chest pain, shortness of breath above baseline, cough, fever, URI, or uncontrolled acid reflux (controlled with med). +occ palpitations Physical Exam Vital Signs BP: 125/80 P: 86bpm SPO2: 95% RA T: 98.3 F R: 18 ENMT Mouth: + edentulous Thyromental Distance: > or= 3.5 Finger Breadths (3.5) Mallampati Class: I Neck normal visual inspection; neck extension not limited Respiratory Auscultation: lungs clear to auscultation bilaterally and + diminished lung sounds (very) Cardiovascular Rate/Rhythm: regular rate and regular rhythm Heart Sounds: no murmur Vessels: no carotid bruit Extremities: no edema Very distant heart sounds Testing Laboratory Results 11/25/19 13:05 11/25/19 13:05 PT 10.6 Seconds (9.0-12.0) 11/25/19 13:05 INR 1.0 (0.9-1.1) 11/25/19 13:05 APTT 28.3 Seconds (21.0-31.0) 11/25/19 13:05 Blood Type O Positive 11/25/19 13:05 Antibody Screen NEGATIVE 11/25/19 13:05 Electrocardiogram Date: 02/27/19 Findings: + NSR @ (88bpm) Borderline left axis deviation. NSTWA. Stress Test Date: 04/28/19 Negative dobutamine stress echo and EKG for myocardial ischemia at 67% MPHR. No dobutamine induced chest pain. The baseline echocardiogram notes normal LV function. Pulmonary Function Test Date: 03/02/19 Findings: + FEV1 pre (38% predicted) and + DLCO (26% predicted); no responds to Bronchodilators Severe airflow obstruction without bronchodilator response. Lung volumes hyperinflated and DLCO reduced. Compared to 03/06FEV1 and FVC are decreased as his DLCO. Other Testing CT Lung 02/25/19 IMPRESSION: 1. 5 mm benign morphology left upper lobe nodule. Lung RADS 2. No suspicious nodule. Continue annual lung cancer screening. 2. Severe emphysema. 3. Prominent though subcentimeter mediastinal lymph nodes are likely reactive. 4. Coronary artery calcification.
[2019-11-25 13:20] LABS: Basophils # (auto) 0.02 K/uL (0-0.2); Basophils % (auto) 0.3 %; Eosinophils # (auto) 0.34 K/uL (0-0.5); Eosinophils % (auto) 4.9 %; Hematocrit (blood only) 42.2 % (42-52); Hemoglobin 14.2 g/dL (14.0-18.0); Lymphocytes # (auto) 2.59 K/uL (1.2-3.4); Lymphocytes % (auto) 37.4 %; Mean Corpuscular Hemoglobin 31.8 pg (25-34); Mean Corpuscular Hgb Conc 33.6 g/dL (32-36); Mean Corpuscular Volume 94.4 fL (80-100); Mean Platelet Volume 10.9 fL (7.4-10.4); Monocytes # (auto) 0.31 K/uL (0.11-0.59); Monocytes % (auto) 4.5 %; Neutrophils # (auto) 3.67 K/uL (1.4-6.5); Neutrophils % (auto) 52.9 %; Platelet Count 163 K/uL (130-400); Red Blood Count 4.47 M/uL (4.7-6.1); White Blood Count 6.93 K/uL (4.8-10.8)
[2019-11-25 13:34] LABS: Partial Thromboplastin Time 28.3 Seconds (21.0-31.0); Prothrombin Time 10.6 Seconds (9.0-12.0)
[2019-11-25 14:42] LABS: BUN Creatinine Ratio 12.5 (10-20); Calcium 8.5 mg/dl (8.5-10.1); Creatinine Clr Calc Pharmacy 64.8 ml/min; Est GFR (African American) 73.2; Est GFR (Non-African American) 63.1
--- NOTE | 2019-12-19 13:57 | History and Physical Report ---
DATE OF ADMISSION: 12/25/2019 CHIEF COMPLAINT: Persistent progressive left knee pain and discomfort. HISTORY OF PRESENT ILLNESS: The patient is a 64-year-old gentleman referred by my partner, Dr. Olivares, for surgical treatment of his left knee. He has got a long history of left knee pain and discomfort that has gradually gotten worse over the past 5 years. Pain is most all medial. He did have a shot in his knee, which helped him for about 4 weeks and that is about it. Pain has become more debilitating. The more he walks, the more it hurts. He limps more as the day goes on. He has difficulty going up and down stairs. He has got nighttime pain. He would like to have his knee fixed. PAST MEDICAL HISTORY: 1. Hypertension. 2. Irregular heartbeat. 3. Significant COPD. 4. Anxiety/depression. 5. Gastroesophageal reflux disease. PAST SURGICAL HISTORY: Include: 1. Herniorrhaphy. 2. Sinus polyp resection. ALLERGIES: SULFA. CURRENT MEDICINES: Include: 1. Albuterol inhaler. 2. Atorvastatin. 3. Diclofenac topical gel. 4. Gabapentin. 5. Lisinopril. 6. Metoprolol. 7. Mirtazapine. 8. Pantoprazole. 9. Paroxetine. 10. Promethazine. 11. Quetiapine. 12. Tiotropium. 13. Triamcinolone topical cream. SOCIAL HISTORY: This is a 64-year-old male. Does not smoke. No significant alcohol intake. FAMILY HISTORY: Noncontributory. REVIEW OF SYSTEMS: Significant for COPD. Denies any chest pain. No fevers, no weight loss. No history of DVT or PE. PHYSICAL EXAMINATION: GENERAL: Shows a pleasant, middle-aged male. Looks to be in pretty good health. HEENT: Benign. NECK: Supple, no lymphadenopathy. LUNGS: Clear to auscultation. HEART: Has regular rate and rhythm. ABDOMEN: Soft, nontender, nondistended. EXTREMITIES: Grossly neurovascularly intact except as follows. Examination of left knee reveals the patient walks with a bit of a limp. He has got varus alignment to his knee. I do not detect any varus thrust with weightbearing. He has got bony hypertrophy medially. Small knee effusion. Range of motion is 5-125. Good endpoint to his Maldonado, no pivot. No varus or valgus instability. No pain with hip motion. X-RAYS: X-rays of the left knee from previously reviewed. It shows advanced left knee medial compartment DJD. He has got complete loss of his medial joint space. On the stress film, his medial compartment opens up and the lateral compartment is well preserved. ASSESSMENT: A 64-year-old male with pretty significant chronic obstructive pulmonary disease with advanced along with hypertension, managed medically with advanced left knee medial compartment degenerative joint disease. He has failed conservative treatment and he would like to have his left knee replaced. PLAN: We talked about treatment options. After assessing everything, I do feel he is a good candidate for partial knee replacement. In light of this, we are going to take him to the operating room and do a left partial knee replacement. If we get in there, it is too bad, we will do a full knee replacement. The risks and benefits of these procedures were explained to the patient including but not limited to DVT, PE, , infection, neurologic problem, vascular problem, bleeding problems, incomplete relief of symptoms, need for further surgery in future, fracture, leg length inequality, nerve palsy, dislocation, etc. The patient understands and desires to proceed. Informed consent was obtained. We did talk to him about holding his lisinopril the morning of surgery and taking his metoprolol.
[~2019-12-25 05:07] MED LIST changes: +*CEFAZOLIN*ALLERGY NOTED TO ORDERED MEDICATION SCH; -ALPR-385 PO; -CHOL2000 PO; -CLIN1SOL23 TOP; -CYAN10005 PO; -DOCU-94 PO; -FLUT50SP45; -METO25TA3 PO; -MIRT30TA2 PO; -NORT10CA PO; -NRN/300 PO; -PANT40TA PO; -PARO1TAB27 PO; -PROM25TA16 PO; -PROP10TA7 PO; -PYRI100T4 PO; -SPRIN/30 INH; -TRIA0.022 TOP
[2019-12-25] MEDS ORDERED: LR 60ML/HR IV SCH (06:00)
[2019-12-25] MEDS ORDERED: ACETAMINOPHEN 500 MG TAB PO SCH (06:00)
[2019-12-25] MEDS ORDERED: FAMOTIDINE 20 MG TAB PO SCH (06:00)
[2019-12-25] MEDS ORDERED: METOCLOPRAMIDE HCL 10 MG TABLET PO SCH (06:00)
[2019-12-25] MEDS ORDERED: BUPIVACAINE LIPOSOME/PF 266 MG, BUPIVACAINE/EPINEPHRINE 50 ML, SODIUM CHLORIDE 0.9% 30 ... INFIL SCH (06:00)
[2019-12-25] MEDS ORDERED: GABAPENTIN 600 MG DOSE PO SCH (06:00)
[2019-12-25] MEDS ORDERED: ceFAZolin 2000MG 2,000 MG/15 ML SYR IV SCH ×2 (06:00)
[2019-12-25] MEDS ORDERED: TRANEXAMIC ACID 1,000 MG **IV Intra-op IV SCH (06:00)
[2019-12-25] MEDS ORDERED: LR 500ML BOLUS, THEN 15ML/HR IV SCH (06:00)
[2019-12-25] MEDS ORDERED: fentaNYL citrate 100 MCG/2 ML VIAL ONE (06:18)
[2019-12-25] MEDS ORDERED: MIDAZOLAM HCL 1 MG/ML 2ML VIAL ONE (06:18)
[2019-12-25] MEDS ORDERED: BUPIVACAINE 0.5 % 5 MG/1 ML PF 10ML VIAL ONE (06:29)
[2019-12-25] MEDS ORDERED: BUPIVACAINE 0.25% 30 ML VIAL ONE ×3 (06:29→06:57)
[2019-12-25] MEDS ORDERED: EPINEPHrine INJ 1 MG/ML AMP ONE ×2 (06:29→06:44)
[2019-12-25] MEDS ORDERED: BACITRACIN INJ 50,000 UNIT VIAL ONE (06:42)
[2019-12-25] MEDS ORDERED: BUPIVACAINE LIPOSOME 1.3% 266 MG/20 ML VIAL ONE (06:42)
[2019-12-25] MEDS ORDERED: SODIUM CHLORIDE 0.9% PF 50 ML VIAL ONE (06:42)
[2019-12-25] MEDS ORDERED: fentaNYL citrate 100 MCG/2 ML VIAL IV PRN (06:47)
[2019-12-25] MEDS ORDERED: HYDROmorphone INJ 2 MG/ML SYR/VIAL IV PRN (06:47)
[2019-12-25] MEDS ORDERED: ePHEDrine sulfate 50 MG/ML AMP IV PRN (06:47)
[2019-12-25] MEDS ORDERED: ATROPINE SULFATE 0.1 MG/ML 10ML SYR IV PRN (06:47)
[2019-12-25] MEDS ORDERED: ONDANSETRON INJ 2 MG/ML 2 ML VIAL IV PRN ×2 (06:47→10:14)
--- NOTE | 2019-12-25 06:47 | History & Physical Bridge Note ---
Date of Service December 25, 2019 History & Physical Bridge Note I have examined the patient, reviewed the History & Physical and in the interval since the performance of the History & Physical I have noted the following changes of clinical significance: no changes noted
[2019-12-25] MEDS ORDERED: PROPOFOL IV EMULSION 10 MG/ML 20 ML VIAL IV ONE ×2 (07:05→07:52)
[2019-12-25] MEDS ORDERED: PHENYLEPHRINE HCL 10 MG/ML VIAL ONE (07:12)
--- NOTE | 2019-12-25 08:46 | Post Operative Brief Note ---
PG Immediate Post Op with CF Date of Surgery December 25, 2019 Pre & Post Diagnosis Operation Date: 12/25/19 07:00 Pre-Op Diagnosis: Left Knee Degenerative Joint Disease Post-Op Diagnosis: Left Knee Degenerative Joint Disease I identified the patient and participated in the time-out.: Yes Procedure Operation Date: 12/25/19 07:00 Actual Procedures p Left Knee Arthroplasty Unicompartment (Left) - Avery Wilcox MD Surgeon Avery Wilcox MD Building Custodian ALBERT George Estimated Blood Loss 25 Findings Consistent with Post-Op Diagnosis Fluids 800 cc Specimens Specimen Description: Permanent: A. Left knee bone and tissue Drains Miguel Catheter Anesthesia Type Spinal MAC Complications none Disposition Accompanied Patient To Recovery: No Disposition: Recovery Room
--- NOTE | 2019-12-25 09:00 | Operative Report ---
Post Operative Report Pre & Post Diagnosis Operation Date: 12/25/19 07:00 Pre-Op Diagnosis: Left Knee Degenerative Joint Disease Post-Op Diagnosis: Left Knee Degenerative Joint Disease I identified the patient and participated in the time-out.: Yes Procedure Operation Date: 12/25/19 07:00 Actual Procedures p Left Knee Arthroplasty Unicompartment (Left) - Avery Wilcox MD Surgeon Avery Wilcox MD Pipe Puller ALBERT George Estimated Blood Loss 25 Findings Consistent with Post-Op Diagnosis Operative findings revealed extensive grade 4 [id number] disease of the medial compartment with eburnation medial femoral condyle and the typical anterior medial wear of the tibia. He had a moderate-sized joint effusion. He had some moderate trochlear disease. Patella was pretty well-preserved and the lateral compartment was well-preserved. He did have a varus deformity to his knee. Fluids 800 cc. Specimens Left knee sent for pathology. Drains None. Anesthesia Type Spinal MAC Complications none Disposition Accompanied Patient To Recovery: No Disposition: Recovery Room Indications Patient is a 64-year-old gent with multiple medical comorbidities who has had a several year history of increasing left knee pain discomfort. He has been through extensive conservative treatment which was less successful as time went on. X-rays show advanced medial compartment arthritis. Symptoms localized the medial side of his knee. Patient has multiple medical comorbidities and we maicol cted proceed with partial knee replacement as I felt that was his best option. His knee was stable with an intact ACL. Description of Procedure Operative implants consist of: 1. Biomet [place] medium size femoral component. 2. Biomet left medial size C tibial tray. 3. 5 mm mobile-bearing polyethylene insert. Patient was taken to the operating identified and placed on the operating table supine position protectors were properly padded. IV antibiotics were provided by anesthesia team. Spinal anesthetic and abductor canal block had been provi ded in the holding area. A Miguel catheter was placed in sterile fashion. Left thigh tip was then placed in the left lower extremities and prepped and draped in usual sterile fashion. The left leg was elevated and exsanguinated with use of an Esmarch and turns placed at 300 mmHg. An anterior approach to the left knee was then performed through a longitudinal incision beginning at the superior pole patella and extending just medial to the tibial tubercle. Sharp dissection got through subcutaneous tissue down the extensor mechanism. Subcutaneous tissues were mobilized circumferentially. A medial parapatellar arthrotomy incision was made. Some subperiosteal dissection was carried out medially. The fat pad was resected from each patella tendon. I then examined the lateral compartment it was well preserved. He did have some trochlear wear but we elected to proceed with a partial knee replacement considering multiple issues. The osteophyte was taken off the intercondylar notch area. The femur was then sized to a medium. The medium spoon was placed. The external tibial alignment jig was then placed in the interface the tibia and attached to the medium spoon. This was then a ffixed to the tibia. The proximal tibial cut was made. I adjusted this several times to take a little bit more bone. We sized the tibia to a size C. Attention drawn the femur. The distal femur was entered with a sharp drill. Intramedullary driss was placed. The the size medium femoral template was then placed and attached to the IM driss. The holes were drilled for the femoral component. The posterior cutting guide was placed in the posterior resection was made. The medial meniscus was then excised. The 0 spigot was then used to mill the distal femur. We then trialed the knee and the 5 feeler gauge fit appropriately in flexion and the 2 in extension. The 3 spigot was then placed in the distal femur was milled again. After this, the 5 feeler gauge fit appropriate in flexion extension. We elect to place these implants. All trial implants were removed. The femoral cutting guide was then placed. The anterior femur was milled and the posterior osteophyte was removed. The tibial tray was then pinned in place and the toothbrush blade was used to create the defect in the proximal tibia for the tibial tray. I then irrigated the wound. We then trialed the knee and the 5 insert fit appropriately flexion extension. All trial implants were again irrigated and removed. I irrigated extensively. I did inject locally with 100 cc of combination of 20 cc of Exparel, 30 cc normal saline, 50 cc of quarter percent Marcaine with epinephrine. Patient did receive 1 g tranexamic acid. The knee was irrigated. A single batch of [place] G cement was mixed. A left medial size C tibial tray was then cemented in position followed by a medium femoral component. 5 feeler gauge was placed and the knee was brought out into about 30 degrees short full extension until cement hardened. Final cement check was then performed. Trial insert was then once again trialed and the 5 insert fit appropriately. The permanent 5 insert was placed. Attention drawn toward closing. Nupathe wounds irrigated scope soft pulsatile lavage solution. The tourniquet was let down for turn time 67 minutes. Hemostasis assured use electrocautery. Extensor mechanism closed with #1 Vicryl suture in a [id number] fashion. Extensor mechanism checked found to be intact the subcutaneous tissue then closed with 2 Dexon suture in a buried interrupted fashion skin was closed skin karin. Leg was then cleaned dried a sterile dressing composed Xeroform, 4 x 4's, ABD pad, sterile cast padding, Elvis bandage were applied. Patient then transferred to the recovery room in stable condition. The patient tolerated procedure well and there were no complications. Jeyson George, my physician patient care assistant, was present for the entire procedure. His assistance was essential and required for appropriate patient positioning, prepping and draping, surgical exposure, performing the technical details of the operation, placement the implants, closure of the wound, and placement of the sterile bandage. I attest to the content of the Intraoperative Record and any orders documented therein. Any exceptions are noted below.
--- NOTE | 2019-12-25 09:45 | XRay Report ---
TWO VIEWS LEFT KNEE CLINICAL HISTORY: Postoperative examination. FINDINGS: AP and crosstable lateral portable views of the left knee are obtained. A left knee hemiart hroplasty in the medial compartment is in near anatomic alignment. Moderate degenerative joint space narrowing is noted in the lateral and patellofemoral compartments. No acute fracture is seen. There a re expected postoperative changes around the knee including skin clips, soft tissue edema, and subcut aneous gas. IMPRESSION: Expected postoperative changes status post left knee hemiarthroplasty placement. No acute fracture is seen. ACT 112: Negative or not required by law. Electronically signed by: Ulises Anguiano M.D. 12/25/2019 9:44 AM
--- NOTE | 2019-12-25 10:07 | Anesthesiology Progress Note ---
Date of Service December 25, 2019 Anesthesia Post Procedure Vital Signs Vital Signs: Temp Pulse Resp BP Pulse Ox 12/25/19 09:50 36.5 C 61 14 122/84 93 12/25/19 09:40 36.5 C 61 14 128/78 93 12/25/19 09:30 36.5 C 65 14 117/81 92 12/25/19 09:20 64 15 124/81 93 12/25/19 09:10 68 12 115/78 94 12/25/19 09:00 65 12 127/76 100 12/25/19 08:50 36.2 C L 74 14 124/80 98 12/25/19 05:20 36.9 C 20 153/93 H 93 Transfer of Care Handoff Completed per policy Notes Mental Status: alert / awake / arousable and participated in evaluation Patient Amnestic to Procedure: Yes Nausea / Vomiting: adequately controlled Pain: adequately controlled Airway Patency, RR, SpO2: stable & adequate BP & HR: stable & adequate Hydration State: stable & adequate Anesthetic Complications: no major complications apparent and Pt Satisfied with anesthetic care
[2019-12-25] MEDS ORDERED: NALOXONE HCL 0.4 MG/1 ML VIAL/CARP IV PRN (10:14)
[2019-12-25] MEDS ORDERED: METOCLOPRAMIDE HCL INJ 5 MG/ML 2 ML VIAL IV PRN (10:14)
[2019-12-25] MEDS ORDERED: ALUMINUM/MAGNESIUM SUSP 30 ML UDC PO PRN (10:14)
[2019-12-25] MEDS ORDERED: diphenhydrAMINE Capsule 25 MG CAP PO PRN (10:14)
[2019-12-25] MEDS ORDERED: MAGNESIUM HYDROXIDE SUSP 30 ML UDC PO PRN (10:14)
[2019-12-25] MEDS ORDERED: bisacodyL 10 MG SUPP PR PRN (10:14)
[2019-12-25] MEDS ORDERED: ALBUTEROL HFA 8 GM INHALER INH PRN (10:14)
[2019-12-25] MEDS ORDERED: GABAPENTIN 300 MG CAP PO PRN (10:14)
[2019-12-25] MEDS ORDERED: TAMSULOSIN HCL 0.4 MG CAP PO PRN (10:14)
[2019-12-25] MEDS ORDERED: HYDROmorphone INJ 0.5 MG/0.5 ML SYR IV PRN (10:14)
[2019-12-25] MEDS ORDERED: PROMETHAZINE HCL 25 MG TAB PO PRN (10:14)
[2019-12-25] MEDS: DOCUSATE SODIUM 100 MG CAP PO SCH ×2 (12:44→21:34)
[2019-12-25] MEDS: PANTOprazole 40 MG TAB PO SCH (12:44)
[2019-12-25] MEDS: MULTIVITAMIN TAB PO SCH (12:44)
[2019-12-25] MEDS: lisinopril 10 MG TAB PO SCH (12:45)
[2019-12-25] MEDS: METOPROLOL SUCC 25MG EXT REL TAB PO SCH (12:45)
[2019-12-25] MEDS: PARoxetine HCL 20 MG TAB PO SCH ×2 (12:45→21:34)
[2019-12-25] MEDS: NORTRIPTYLINE HCL 10 MG CAP PO SCH ×3 (12:45→21:33)
[2019-12-25] MEDS: traMADol HCL 50 MG TABLET PO PRN (13:41)
[2019-12-25] MEDS: KETOROLAC 30 MG/ML VIAL IV SCH ×2 (13:42→18:34)
[2019-12-25] MEDS: ACETAMINOPHEN 500 MG TAB PO SCH ×2 (13:42→21:33)
[2019-12-25] MEDS: ceFAZolin 2000MG 2,000 MG/15 ML SYR IV SCH ×2 (14:41→21:33)
[2019-12-25] MEDS: SODIUM CHLORIDE 0.9% 1000ML 1,000 ML IV SCH ×2 (14:42→21:49)
[2019-12-25] MEDS: Scopolamine CHECK PATCH PLACEMENT SCH (16:48)
[2019-12-25] MEDS: ASCORBIC ACID 500 MG TAB PO SCH (18:34)
[2019-12-25] MEDS ORDERED: UMECLIDINIUM BROMIDE 62.5MCG/BLISTER 7 PUFFS/INHALER INH SCH (21:00)
[2019-12-25] MEDS: QUEtiapine FUMARATE 100 MG TABLET PO SCH (21:33)
[2019-12-25] MEDS: ASPIRIN 81 MG ECTAB PO SCH (21:33)
[2019-12-25] MEDS: QUEtiapine FUMARATE 25 MG TABLET PO SCH (21:33)
[2019-12-25] MEDS: SENNA 8.6 MG TAB PO SCH (21:33)
[2019-12-25] MEDS: MIRTAZAPINE SOLTAB 15 MG PO SCH (21:34)
[2019-12-25] MEDS: ATORVASTATIN 10 MG TAB PO SCH (21:34)
[2019-12-26] MEDS: Scopolamine CHECK PATCH PLACEMENT SCH ×3 (00:26→16:24)
[2019-12-26] MEDS: KETOROLAC 30 MG/ML VIAL IV SCH ×4 (00:26→17:46)
[2019-12-26] MEDS: ACETAMINOPHEN 500 MG TAB PO SCH ×3 (06:26→21:44)
[2019-12-26 06:57] LABS: Hematocrit (blood only) 38.5 % (42-52); Hemoglobin 12.7 g/dL (14.0-18.0); Mean Corpuscular Hemoglobin 30.9 pg (25-34); Mean Corpuscular Volume 93.7 fL (80-100); Platelet Count 126 K/uL (130-400); RDW Coefficient of Variation 13.5 % (11.5-14.5); RDW Standard Deviation 46.2 fL (36.4-46.3); Red Blood Count 4.11 M/uL (4.7-6.1); White Blood Count 6.84 K/uL (4.8-10.8)
[2019-12-26 07:32] LABS: BUN Creatinine Ratio 10.9 (10-20); Calcium 7.8 mg/dl (8.5-10.1); Creatinine Clr Calc Pharmacy 68.2 ml/min; Est GFR (African American) 77.8; Est GFR (Non-African American) 67.1; Potassium 3.7 mmol/L (3.5-5.1)
[2019-12-26] MEDS: traMADol HCL 50 MG TABLET PO PRN ×2 (08:08→20:20)
[2019-12-26] MEDS: ASPIRIN 81 MG ECTAB PO SCH ×2 (09:23→20:14)
[2019-12-26] MEDS: NORTRIPTYLINE HCL 10 MG CAP PO SCH ×3 (09:24→20:14)
[2019-12-26] MEDS: PARoxetine HCL 20 MG TAB PO SCH ×2 (09:24→20:14)
[2019-12-26] MEDS: PANTOprazole 40 MG TAB PO SCH (09:24)
[2019-12-26] MEDS: MULTIVITAMIN TAB PO SCH (09:24)
[2019-12-26] MEDS: DOCUSATE SODIUM 100 MG CAP PO SCH ×2 (09:25→20:13)
[2019-12-26] MEDS: ASCORBIC ACID 500 MG TAB PO SCH ×2 (09:25→16:24)
[2019-12-26] MEDS: lisinopril 10 MG TAB PO SCH (11:15)
[2019-12-26] MEDS: METOPROLOL SUCC 25MG EXT REL TAB PO SCH (11:16)
--- NOTE | 2019-12-26 13:34 | Progress Notes ---
DATE: 12/26/2019 SUBJECTIVE: A 64-year-old gentleman postop day 1 from a left partial knee replacement. He is doing pretty well this morning. Some pain, but manageable. No chest pain or shortness of breath. Not feeling dizzy or lightheaded. OBJECTIVE: VITAL SIGNS: Temperature 36.6. Vital signs stable. GENERAL: Shows a pleasant, middle-aged male. He is sitting up in bed, looks pretty comfortable this morning. EXTREMITIES: Examination of the left leg reveals the leg to be well aligned. Dressing is clean, dry, and intact. He can dorsiflex and plantarflex his foot appropriately. He can do a good straight leg raise. LABORATORY DATA: Hemoglobin 12.7. Hematocrit 38.5. Electrolytes are stable. ASSESSMENT: A 64-year-old gentleman postoperative day 1 from a left partial knee replacement, doing well. His pain is controlled. He is neurologically intact. PLAN: 1. DVT prophylaxis including thigh-high TEDs, SCDs, and aspirin twice a day. 2. PT/OT. Weight bear as tolerated. Left total knee protocol. 3. Pain control, doing well with current pain regimen. 4. Disposition: Plan to discharge to home with some home health likely later today.
--- NOTE | 2019-12-26 15:08 | Hospitalist Consultation ---
Date of Consultation December 26, 2019 Assessment & Plan (1) Left knee DJD: Left knee arthroplasty unicompartmental 12/25/19 (2) COPD (chronic obstructive pulmonary disease): Patient likely is flirting with hypoxia as an outpatient on a good day. We will maximize his pulmonary toilet with chest physiotherapy give duo nebs 4 times daily not add any steroid therapy at this time to impede wound healing unless is absolutely necessary (3) Depression with anxiety: Patient on multiple medications for his depression we will continue Remeron nortriptyline Paxil and Seroquel (4) BPH (benign prostatic hyperplasia): Patient typically has BPH we will watch for postoperative urinary retention given his anesthesia (5) Hypertension: Patient typically takes lisinopril 10, Toprol-XL 25 these were appropriately continued by the primary service History of Present Illness Attending Physician: Avery Wilcox MD History of Present Illness Patient underwent a left knee arthroplasty unicompartmental on 12/25/2019. He was found postoperatively to be hypoxic. He does follow with Dr. Ibanez in pulmonary medicine and is known to have severe airway obstruction with a recent visit and PFTs that were performed. During that office visit his O2 sats were 90% on room air. Patient reportedly by records has had some challenges tolerating outpatient medications and been tried on different medicines by Dr. Ibanez Allergies Allergy/AdvReac Type Severity Reaction Status Date / Time amoxicillin Allergy Unknown RASH Verified 12/25/19 05:29 prednisone Allergy Unknown Flushing Verified 12/25/19 05:29 Sulfa (Sulfonamide AdvReac Mild RASH Verified 12/25/19 05:29 Antibiotics) procaine [From Novocain] AdvReac Fainting Verified 12/25/19 05:29 single episode Home Medications Home Medications Medication Instructions Recorded Confirmed Type nortriptyline 10 mg PO TID 11/05/17 12/25/19 History albuterol sulfate 90 mcg/actuation 2 puffs INHALATION Q4H PRN #1 gm 09/16/18 12/25/19 History aerosol inhaler gabapentin 300 mg capsule 300 mg PO TID PRN cap 09/16/18 12/25/19 History mirtazapine 45 mg tablet 45 mg PO HS #90 tab 09/16/18 12/25/19 History paroxetine HCl 20 mg tablet 20 mg PO BID tab 09/16/18 12/25/19 History quetiapine 25 mg tablet 25 mg PO HS tab 09/16/18 12/25/19 History promethazine 25 mg tablet 25 mg PO Q6H PRN #60 tab 09/28/19 12/25/19 Rx atorvastatin 10 mg PO QPM 11/23/19 12/25/19 History lisinopril 10 mg PO QDL 11/23/19 12/25/19 History metoprolol succinate 25 mg PO QDL 11/23/19 12/25/19 History pantoprazole 40 mg PO QAM 11/23/19 12/25/19 History quetiapine 100 mg PO HS 11/23/19 12/25/19 History tiotropium bromide 2 puffs INHALATION QPM 11/23/19 12/25/19 History acetaminophen 1,000 mg PO Q8 30 Days #180 tab 12/25/19 Rx aspirin 81 mg PO BID 30 Days #60 tab 12/25/19 Rx tramadol 50 - 100 mg PO Q6H PRN #40 tab 12/25/19 Rx Patient History Medical History Asthma uses PRN inh 1-2 x wk on average BPH (benign prostatic hyperplasia) COPD (chronic obstructive pulmonary disease) Coronary artery calcification Noted on [address] Patient already on statin, BB and Lisinopril. Negative Dobutamine stress echo 04/28/19. Depression with anxiety GERD (gastroesophageal reflux disease) Heart palpitations CONTROLLED WITH BETA CHALO Hypertension Irritable bowel syndrome with constipation Osteoarthritis Prediabetes MONITORED Premature atrial contraction Surgical History History of colonoscopy History of hernia repair 06/06/2018 [facility] History of sinus surgery Family History Mother Anxiety Depression Breast cancer Seizure Father Anxiety Depression Myocardial infarction Other Family history non-contributory No family history of adverse response to anesthesia Social History Smoking Status: Former smoker Cigarettes Per Day: 30; Smoking End Date: 7-8 years ago; Second Hand Exposure: No; Do You Dip or Chew Tobacco: No; Tobacco Cessation Education Requested by Patient: No Hx Alcohol Use: No Hx Substance Use: No Preferred Language: Yakut Communication Ability: Effective 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 Required: No Beliefs That Will Affect Care: None marital status: Single Current Living Situation: Family Current Living Situation Comment: lives with son Feels Safe at Home: Yes Safety Concerns: Feels Safe At This Time Assistive Devices: Walker Review of Systems Review of Systems: Mild distress and fatigue no headache, blurry or double vision no speech or swallowing issues no chest pain, pressure or palpitations no subjective complaints of shortness of breath, cough or wheezes no abdominal pain, nausea or vomiting, diarrhea or constipation no dysuria, hematuria or frequency Expected postop discomfort no back pain, CVA tenderness or radicular pain no bruising, bleeding or rashes no focal signs of weakness or numbness or altered sensation no complaints of anxiety or depression. Physical Exam Physical Exam: The patient appeared well nourished and normally developed. Vital signs as documented. Head exam is normocephalic atraumatic no scleral icterus Neck is without JVD, thyromegaly, or carotid bruits. Lungs are clear to auscultation, decreased at the bases, no focal loss of breath sounds Cardiac exam, Rhythm is regular.. No murmurs, rubs or gallops. Abdominal exam reveals normal bowel sounds, soft non tender, no masses Extremities are with bandage wrapping in place in the postoperative knee Neurologic exam is alert and oriented, no focal loss of strength or sensation Skin is without bruises or rashes Psychologically is without concerns for anxiety or depression. Results & Data Results & Data ([facility]) Vital Signs (Past 12 Hours) Vital Signs Temp Pulse Resp BP Pulse Ox Pulse Ox Pulse Ox 12/26/19 12:57 87 91 12/26/19 12:53 89 L 12/26/19 11:54 92 84 L 12/26/19 11:47 82 L 12/26/19 11:18 97.3 F L 12/26/19 11:14 89 92 12/26/19 11:13 85 138/84 82 L 12/26/19 07:50 82 95 12/26/19 07:34 97.9 F 78 18 131/78 95 12/26/19 03:48 97.9 F 74 16 113/71 96 PG Care Time/CCT Total # of Minutes Spent Total Time Spent with Patient: Total time spent is greater than 50% in coordination of care (as documented) at patient's floor/unit and/or counseling patient: Coding Level of Care Code 42042 Inpt Consult Level 4 Diagnoses Left knee DJD M17.12 COPD (chronic obstructive pulmonary disease) J44.9 Depression with anxiety F41.8 BPH (benign prostatic hyperplasia) N40.0 Hypertension I10
[2019-12-26] MEDS: ALBUT/IPRATROP 3MG/0.5MG NEB 3 ML VIAL NEB SCH (19:31)
[2019-12-26] MEDS: SENNA 8.6 MG TAB PO SCH (20:13)
[2019-12-26] MEDS: ATORVASTATIN 10 MG TAB PO SCH (20:14)
[2019-12-26] MEDS: MIRTAZAPINE SOLTAB 15 MG PO SCH (20:15)
[2019-12-26] MEDS: QUEtiapine FUMARATE 25 MG TABLET PO SCH (20:15)
[2019-12-26] MEDS: QUEtiapine FUMARATE 100 MG TABLET PO SCH (20:15)
[2019-12-27] MEDS: Scopolamine CHECK PATCH PLACEMENT SCH ×2 (00:14→08:33)
[2019-12-27] MEDS: KETOROLAC 30 MG/ML VIAL IV SCH ×2 (00:15→05:48)
[2019-12-27] MEDS: ACETAMINOPHEN 500 MG TAB PO SCH (05:48)
[2019-12-27] MEDS: ALBUT/IPRATROP 3MG/0.5MG NEB 3 ML VIAL NEB SCH (06:56)
[2019-12-27] MEDS: NORTRIPTYLINE HCL 10 MG CAP PO SCH (08:31)
[2019-12-27] MEDS: ASPIRIN 81 MG ECTAB PO SCH (08:31)
[2019-12-27] MEDS: DOCUSATE SODIUM 100 MG CAP PO SCH (08:31)
[2019-12-27] MEDS: ASCORBIC ACID 500 MG TAB PO SCH (08:32)
[2019-12-27] MEDS: MULTIVITAMIN TAB PO SCH (08:32)
[2019-12-27] MEDS: PANTOprazole 40 MG TAB PO SCH (08:32)
[2019-12-27] MEDS: PARoxetine HCL 20 MG TAB PO SCH (08:32)
--- NOTE | 2019-12-27 08:43 | Progress Notes ---
DATE: 12/27/2019 SUBJECTIVE: A 64-year-old gentleman postop day 2 from a left partial knee replacement. He is doing pretty well. His O2 sats have been low, but he says he is not feeling different than he did at home. He has been put on some low level oxygen. Denies any chest pain or shortness of breath. Not feeling dizzy or lightheaded. He does normally get short of breath with minimal exertion due to his COPD. OBJECTIVE: VITAL SIGNS: Temperature 36.4. Vital signs stable. O2 sats 91%. GENERAL: A pleasant middle-aged male. He is lying in bed, looks pretty comfortable. He has got some O2. He is breathing comfortably. EXTREMITIES: Examination of the left leg reveals the leg to be well aligned. Dressing is clean, dry and intact. Just a trace bit of bloody drainage. He can do a good straight leg raise. He is neurologically intact. ASSESSMENT: A 64-year-old gentleman postoperative day 2 from a left partial knee replacement, doing pretty well. His O2 saturations have been low, but I believe this is his baseline. He is asymptomatic and at baseline. Medicine service evaluated and agree with above. PLAN: 1. DVT prophylaxis including thigh-high TEDs, SCDs, and aspirin twice a day. 2. PT/OT. Weight bear as tolerated. Left total knee protocol. 3. Pain control, doing okay with current pain regimen. 4. Disposition: Plan to discharge to home likely with some home health later today. We will leave it up to the medicine service whether he needs any oxygen. KARSON
[2019-12-27] MEDS: lisinopril 10 MG TAB PO SCH (12:19)
[2019-12-27] MEDS: METOPROLOL SUCC 25MG EXT REL TAB PO SCH (12:20)
--- NOTE | 2019-12-27 17:02 | Hospitalist Progress Note ---
Date of Service December 27, 2019 Assessment & Plan (1) Left knee DJD: Left knee arthroplasty unicompartmental 12/25/19 (2) COPD (chronic obstructive pulmonary disease): Patient likely is flirting with hypoxia as an outpatient on a good day. Patient denies any subsequent improvement with DuoNeb therapy. He was not exhibiting any signs or symptoms concerning for venal thromboembolic disease but he may benefit from CT angiography in the future, he was on aspirin twice daily by orthopedics for VTE prevention. (3) Depression with anxiety: Patient on multiple medications for his depression we will continue Remeron nortriptyline Paxil and Seroquel (4) BPH (benign prostatic hyperplasia): Patient typically has BPH we will watch for postoperative urinary retenti on given his anesthesia (5) Hypertension: Patient typically takes lisinopril 10, Toprol-XL 25 these were appropriately continued by the primary service Admission and Anticipated Discharge Date Admission Date: December 25, 2019 Subjective I did visit with the patient and his son prior to discharge. His oxygen saturations hovered between 89 and 90%. I informed him that he was in this range during his last visit with pulmonary medicine as it was documented he was 90% on room air in the chart. Also informed him that he may eventually graduate towards requiring supplemental oxygen however at this time he is being discharged by Ortho on room air. Once he recuperates from his knee surgery he likely would benefit from pulmonary rehabilitation. I also recommend he continue to follow with pulmonary medicine. Review of Systems Review of Systems: Mild distress and fatigue no headache, blurry or double vision no speech or swallowing issues no chest pain, pressure or palpitations no shortness of breath at rest mild dyspnea on exertion, no, cough or wheezes no abdominal pain, nausea or vomiting, diarrhea or constipation no dysuria, hematuria or frequency Some left knee discomfort but typical postoperatively no back pain, CVA tenderness or radicular pain no bruising, bleeding or rashes no focal signs of weakness or numbness or altered sensation no complaints of anxiety or depression. Physical Exam Physical Exam: The patient appeared well he did not exhibit clinical respiratory distress Vital signs as documented. Lungs are clear to auscultation and appear unlabored overall fair air movement Cardiac exam, Rhythm is regular.. No murmurs, rubs or gallops. Abdominal exam reveals normal bowel sounds, soft non tender, no masses Neurologic exam is alert and oriented, no focal loss of strength or sensation Skin is without bruises or rashes Psychologically is without concerns for anxiety or depression. Results & Data Results & Data ([facility]) Vital Signs (Past 12 Hours) Vital Signs Temp Pulse Pulse Resp BP Pulse Ox 12/27/19 11:15 97.5 F L 77 86 18 147/82 H 91 12/27/19 07:23 91 12/27/19 07:22 88 L 12/27/19 07:18 97.5 F L 86 18 147/82 H 86 L 12/27/19 06:56 77 20 98 PG Care Time/CCT Total # of Minutes Spent Total Time Spent with Patient: Total time spent is greater than 50% in coordination of care (as documented) at patient's floor/unit and/or counseling patient: Coding Level of Care Code 84666 Subseq Hosp Care Lvl 2 Diagnoses Left knee DJD M17.12 COPD (chronic obstructive pulmonary disease) J44.9 Depression with anxiety F41.8 BPH (benign prostatic hyperplasia) N40.0 Hypertension I10
--- NOTE | 2019-12-28 15:59 | Discharge Summary ---
Date of Service December 28, 2019 Admission HPI Per Admitting Provider Documented in the h & P Admission Exam (Per Admitting) Constitutional Documented in the H & P Discharge Data Consultations 12/25/19 10:14 Consult Case Management - Discharge Planning Routine 12/26/19 14:11 Consult Hospitalist Routine Procedures Performed Operation Date: 12/25/19 07:00 Actual Procedures p Left Knee Arthroplasty Unicompartment (Left) - Avery Wilcox MD Hospital Course (1) Status post left partial knee replacement: This patient is a 64 year old male admitted on 12/25/19 and underwent unicompartmental knee arthroplasty. He tolerated the procedure well and there were no complications. Transferred to the PACU post op and later to the orthopedic floor for further care. He was given ancef for antibiotic prophylaxis. He was also given EBONI stockings, SCDs, and aspirin for DVT prophylaxis. Hemoglobin, hematocrit, and vital signs were monitored during his hospital stay and remained stable. He did have some hypoxia and the hospitalist service was consulted. He has underlying COPD and this was felt to be his baseline. Did not require any blood transfusions. There were no complications during his hospital stay. By post op day #2 the patient was tolerating a regular diet, pain was reasonably controlled with oral pain medicine, and he was participating in physical therapy. On post op day #2 the patient was discharged home. He was given printed discharge instructions including prescriptions for extra strength tylenol, aspirin, and tramadol. Continue physical therapy, weight bearing as tolerated. Continue EBONI stockings. Follow up approximately 2 weeks post op or sooner if there are problems or concerns. Coding Level of Care Code None Diagnoses Status post left partial knee replacement Z96.652
== END 2019-12-27 12:44 | disposition home or self-care (01) ==
LOC: ASU 05:07 → 3E 05:07